=== PATIENT | male | born 1930 | race Caucasian/White ===

== ENCOUNTER → 2017-10-24 | Outpatient (CLI) | payer MEDICARE, OTHER ==
[2017-10-24 13:01] LABS: INR 2.41; PROTHROMBIN TIME 26.7 SECONDS (12.1-14.4)
== END ==
LOC: M WUC 09:09
DX: Z51.81 Encounter for therapeutic drug level monitoring (principal); Z79.01 Long term (current) use of anticoagulants; I48.3 Typical atrial flutter
CPT/HCPCS: 85610

== ENCOUNTER → 2017-11-29 | Outpatient (CLI) | payer MEDICARE, OTHER ==
[2017-11-29 12:28] LABS: INR 2.21; PROTHROMBIN TIME 24.9 SECONDS (12.1-14.4)
== END ==
LOC: M WUC 09:51
DX: I48.3 Typical atrial flutter (principal)
CPT/HCPCS: 85610

== ENCOUNTER → 2017-12-11 | Outpatient (CLI) | payer MEDICARE, OTHER ==
[2017-12-11 13:56] LABS: HEMATOCRIT 47.8 % (42.0-52.0); HEMOGLOBIN 16.2 g/dl (13.5-17.5); MEAN CORPUSCULAR HEMOGLOBIN 33.9 pg (27.0-33.0); MEAN CORPUSCULAR HGB CONC 33.9 g/dl (32.0-36.5); PLATELET COUNT, AUTOMATED 235 10^3/uL (150-450); RED BLOOD COUNT 4.78 10^6/uL (4.30-6.10); RED CELL DISTRIBUTION WIDTH 13.7 % (11.5-14.5); WHITE BLOOD COUNT 10.3 10^3/uL (4.0-10.0)
[2017-12-11 14:38] LABS: ANION GAP 10 MEQ/L (8-16); BLOOD UREA NITROGEN 20 MG/DL (7-18); CALCIUM LEVEL 9.2 MG/DL (8.8-10.2); CARBON DIOXIDE LEVEL 25 MEQ/L (21-32); CHLORIDE LEVEL 107 MEQ/L (98-107); CREATININE FOR GFR 0.98 MG/DL (0.70-1.30); GLOMERULAR FILTRATION RATE > 60.0 (>35); GLUCOSE, FASTING 100 MG/DL (70-100); MAGNESIUM LEVEL 2.3 MG/DL (1.8-2.4); POTASSIUM SERUM 4.5 MEQ/L (3.5-5.1); SODIUM LEVEL 142 MEQ/L (136-145)
== END ==
LOC: M WUC 10:13
DX: I50.32 Chronic diastolic (congestive) heart failure (principal); I48.2 Chronic atrial fibrillation
CPT/HCPCS: 83735

== ENCOUNTER → 2017-12-27 | Outpatient (CLI) | payer MEDICARE, OTHER ==
[2017-12-27 14:21] LABS: INR 2.05; PROTHROMBIN TIME 23.5 SECONDS (12.1-14.4)
== END ==
LOC: M WUC 10:07
DX: I48.3 Typical atrial flutter (principal)
CPT/HCPCS: 85610

== ENCOUNTER → 2018-01-25 | Outpatient (CLI) | payer MEDICARE, OTHER ==
[2018-01-25 11:00] LABS: INR 2.33
== END ==
LOC: M WUC 09:40
DX: I48.3 Typical atrial flutter (principal)
CPT/HCPCS: 85610

== ENCOUNTER → 2018-02-26 | Outpatient (CLI) | payer MEDICARE, OTHER ==
[2018-02-26 10:24] LABS: INR 2.07; PROTHROMBIN TIME 23.7 SECONDS (12.1-14.4)
== END ==
LOC: M WUC 08:38
DX: I48.3 Typical atrial flutter (principal); Z79.01 Long term (current) use of anticoagulants
CPT/HCPCS: 85610

== ENCOUNTER → 2018-03-28 | Outpatient (CLI) | payer MEDICARE, OTHER ==
[~2018-03-28] MED LIST: /WARF25TA; /WARF5TA; ACET65TA; ATEN50TA2; LASI40TA; LISI40TA; OMEGA 3; OYST500T76; THERGRAN; VITA250T
[2018-03-28 12:42] LABS: INR 2.24; PROTHROMBIN TIME 25.2 SECONDS (12.1-14.4)
== END ==
LOC: M WUC 08:49
PROVIDERS: ATTEND Physician Assistant
DX: I48.3 Typical atrial flutter (principal)

== ENCOUNTER → 2018-04-25 | Outpatient (CLI) | payer MEDICARE, OTHER ==
[2018-04-25 12:28] LABS: INR 2.18; PROTHROMBIN TIME 24.7 SECONDS (12.1-14.4)
== END ==
LOC: M WUC 09:36
PROVIDERS: ATTEND Physician Assistant
DX: I48.3 Typical atrial flutter (principal)

== ENCOUNTER → 2018-05-23 | Outpatient (CLI) | payer MEDICARE, OTHER ==
[2018-05-23 13:31] LABS: INR 1.96; PROTHROMBIN TIME 22.7 SECONDS (12.1-14.4)
== END ==
LOC: M WUC 08:32
PROVIDERS: ATTEND Physician Assistant
DX: I48.3 Typical atrial flutter (principal)

== ENCOUNTER → 2018-06-20 | Outpatient (CLI) | payer MEDICARE, OTHER ==
[2018-06-20 09:16] LABS: HEMATOCRIT 49.8 % (42.0-52.0); HEMOGLOBIN 16.9 g/dl (13.5-17.5); MEAN CORPUSCULAR HEMOGLOBIN 33.7 pg (27.0-33.0); MEAN CORPUSCULAR HGB CONC 33.9 g/dl (32.0-36.5); MEAN CORPUSCULAR VOLUME 99.4 fl (80.0-96.0); PLATELET COUNT, AUTOMATED 234 10^3/uL (150-450); RED BLOOD COUNT 5.01 10^6/uL (4.30-6.10); WHITE BLOOD COUNT 8.6 10^3/uL (4.0-10.0)
[2018-06-20 09:29] LABS: INR 2.61; PROTHROMBIN TIME 28.4 SECONDS (12.1-14.4)
[2018-06-20 09:37] LABS: BLOOD UREA NITROGEN 21 MG/DL (7-18); CARBON DIOXIDE LEVEL 28 MEQ/L (21-32); CHLORIDE LEVEL 106 MEQ/L (98-107); CREATININE FOR GFR 1.01 MG/DL (0.70-1.30); GLOMERULAR FILTRATION RATE > 60.0 (>35); GLUCOSE, FASTING 101 MG/DL (70-100); MAGNESIUM LEVEL 2.2 MG/DL (1.8-2.4); POTASSIUM SERUM 5.2 MEQ/L (3.5-5.1); SODIUM LEVEL 141 MEQ/L (136-145)
== END ==
LOC: M WUC 08:18
PROVIDERS: ATTEND Physician Assistant
DX: I48.2 Chronic atrial fibrillation (principal); I50.32 Chronic diastolic (congestive) heart failure

== ENCOUNTER → 2018-07-18 | Outpatient (CLI) | payer MEDICARE, OTHER ==
[~2018-07-18] MED LIST changes: -/WARF25TA; -/WARF5TA; +COUM1TAB17; +COUM1TAB18
[2018-07-18 10:13] LABS: INR 1.44; PROTHROMBIN TIME 17.8 SECONDS (12.1-14.4)
== END ==
LOC: M WUC 08:32
PROVIDERS: ATTEND Physician Assistant
DX: I48.2 Chronic atrial fibrillation (principal)

== ENCOUNTER → 2018-08-02 | Outpatient (CLI) | payer MEDICARE, OTHER ==
[2018-08-02 12:56] LABS: INR 3.67; PROTHROMBIN TIME 37.4 SECONDS (12.1-14.4)
== END ==
LOC: M WUC 08:46
PROVIDERS: ATTEND Physician Assistant
DX: I48.2 Chronic atrial fibrillation (principal)

== ENCOUNTER → 2018-08-16 | Outpatient (CLI) | payer MEDICARE, OTHER | LOC: M WUC 08:51 | PROVIDERS: ATTEND Physician Assistant | DX: I48.2 Chronic atrial fibrillation (principal) ==

== ENCOUNTER → 2018-09-13 | Outpatient (CLI) | payer MEDICARE, OTHER ==
[2018-09-13 09:40] LABS: INR 3.39; PROTHROMBIN TIME 34.3 SECONDS (11.8-14.0)
== END ==
LOC: M WUC 08:15
PROVIDERS: ATTEND Physician Assistant
DX: I48.2 Chronic atrial fibrillation (principal)

== ENCOUNTER → 2018-09-26 | Outpatient (CLI) | payer MEDICARE, OTHER ==
[2018-09-26 14:08] LABS: INR 2.29
== END ==
LOC: M WUC 08:28
PROVIDERS: ATTEND Physician Assistant
DX: I48.2 Chronic atrial fibrillation (principal)

== ENCOUNTER → 2018-10-29 | Outpatient (CLI) | payer MEDICARE, OTHER ==
[2018-10-29 13:37] LABS: INR 2.3; PROTHROMBIN TIME 25.1 SECONDS (11.8-14.0)
== END ==
LOC: M WUC 08:47
PROVIDERS: ATTEND Physician Assistant
DX: I48.2 Chronic atrial fibrillation (principal)

== ENCOUNTER → 2018-11-27 | Outpatient (CLI) | payer MEDICARE, OTHER ==
[2018-11-27 14:08] LABS: INR 2.49; PROTHROMBIN TIME 26.8 SECONDS (11.8-14.0)
== END ==
LOC: M WUC 08:34
PROVIDERS: ATTEND Physician Assistant
DX: I48.2 Chronic atrial fibrillation (principal)

== ENCOUNTER → 2018-12-28 | Outpatient (CLI) | payer MEDICARE, OTHER ==
[2018-12-28 13:12] LABS: APPEARANCE, URINE HAZY (CLEAR); BACTERIA, URINE AUTO NEGATIVE (NEGATIVE); BILIRUBIN, URINE AUTO NEGATIVE (NEGATIVE); BLOOD, URINE BLOOD 3+ (NEGATIVE); COLOR, URINE YELLOW (YELLOW); GLUCOSE, URINE (UA) AUTO NEGATIVE (NEGATIVE); KETONE, URINE AUTO NEGATIVE (NEGATIVE); LEUKOCYTE ESTERASE, URINE AUTO NEGATIVE (NEGATIVE); MUCUS, URINE SMALL (NEGATIVE); NITRITE, URINE AUTO NEGATIVE (NEGATIVE); PROTEIN, URINE AUTO 1+ mg/dL (NEGATIVE); RBC, URINE AUTO TNTC /HPF (0-3); SPECIFIC GRAVITY URINE AUTO 1.021 (1.002-1.035); SQUAMOUS EPITHELIAL CELL UR AU 0 /HPF (0-6); WBC, URINE AUTO 8 /HPF (0-3)
[2018-12-28 13:19] LABS: HEMATOCRIT 48.2 % (42.0-52.0); HEMOGLOBIN 16.1 g/dl (13.5-17.5); MEAN CORPUSCULAR HGB CONC 33.4 g/dl (32.0-36.5); MEAN CORPUSCULAR VOLUME 101.7 fl (80.0-96.0); PLATELET COUNT, AUTOMATED 242 10^3/uL (150-450); RED BLOOD COUNT 4.74 10^6/uL (4.30-6.10)
[2018-12-28 13:42] LABS: BLOOD UREA NITROGEN 26 MG/DL (7-18); CALCIUM LEVEL 8.8 MG/DL (8.8-10.2); CARBON DIOXIDE LEVEL 30 MEQ/L (21-32); CHLORIDE LEVEL 107 MEQ/L (98-107); CREATININE FOR GFR 1.08 MG/DL (0.70-1.30); GLOMERULAR FILTRATION RATE > 60.0 (>35); GLUCOSE, FASTING 121 MG/DL (70-100); MAGNESIUM LEVEL 2.2 MG/DL (1.8-2.4); POTASSIUM SERUM 4.7 MEQ/L (3.5-5.1); SODIUM LEVEL 143 MEQ/L (136-145)
== END ==
LOC: M WUC 10:32
PROVIDERS: ATTEND Physician Assistant
DX: I48.21 Permanent atrial fibrillation (principal)

== ENCOUNTER → 2019-01-01 | Outpatient (REF) | payer MEDICARE, OTHER ==
[2019-01-01 18:13] LABS: APPEARANCE, URINE CLEAR (CLEAR); BACTERIA, URINE AUTO NEGATIVE (NEGATIVE); BILIRUBIN, URINE AUTO NEGATIVE (NEGATIVE); BLOOD, URINE BLOOD 2+ (NEGATIVE); CALCIUM OXALATE CRYSTALS SMALL; COLOR, URINE YELLOW (YELLOW); GLUCOSE, URINE (UA) AUTO NEGATIVE (NEGATIVE); KETONE, URINE AUTO NEGATIVE (NEGATIVE); LEUKOCYTE ESTERASE, URINE AUTO NEGATIVE (NEGATIVE); MUCUS, URINE SMALL (NEGATIVE); NITRITE, URINE AUTO NEGATIVE (NEGATIVE); PROTEIN, URINE AUTO NEGATIVE (NEGATIVE); RBC, URINE AUTO 7 /HPF (0-3); SPECIFIC GRAVITY URINE AUTO 1.018 (1.002-1.035); SQUAMOUS EPITHELIAL CELL UR AU 0 /HPF (0-6); UROBILINOGEN, URINE AUTO 0.2 mg/dL (0.0-2.0); WBC, URINE AUTO 3 /HPF (0-3)
== END ==
LOC: M SMT 17:42
PROVIDERS: ATTEND Nurse Practitioner Family
DX: R31.9 Hematuria, unspecified (principal)
CPT/HCPCS: 81001; 87086; 88108; G0463

== ENCOUNTER → 2019-01-09 | Outpatient (CLI) | payer MEDICARE, OTHER ==
[~2019-01-09] MED LIST changes: +ISOVUE-370 76% 100ML VIAL (Q9967) As Ordered ONE
--- NOTE | 2019-01-09 16:34 | REP ---
REASON: Hematuria. PRIORS: None. CONTRAST: 100 mL Isovue-370. Fibrotic changes are suspected in the lung bases. There are no pleural or pericardial effusions. There is four chamber cardial enlargement. Precontrast enhanced portion of the examination shows no nephroureterolithiasis, hydronephrosis or hydroureter. There are no choleliths. Granulomatous calcifications are seen in the spleen. Contrast enhanced portion of the examination shows the liver, gallbladder, spleen, pancreas, adrenal glands and kidneys to be within normal limits for the patient's age. The abdominal aorta and paraortic regions are within normal limits. The bowel loops and their mesenteries are within normal limits. There is no free fluid or free air in the abdomen. There is no evidence of an intraabdominal mass or adenopathy. There is a tiny umbilical hernia through which only mesentery protrudes. CT PELVIS: There is a hutch diverticulum of the urinary bladder on the right. There is prostatomegaly with mild corpora amylacea. There is sigmoid colon diverticulosis. There is no free fluid or free air. There is no pelvic adenopathy. Bone window technique throughout the exam shows the osseous structures to be within normal limits for the patient's age. Spinal, sacroiliac joint, and particularly right hip degenerative changes are present. 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 CT urogram shows incomplete opacification of the left ureter, likely technically related. There is no evidence of hydronephrosis or hydroureter. IMPRESSION:There is no acute intraabdominal or intrapelvic disease. Findings as described above. Electronically Signed by Evan Hilario DO 01/10/2019 10:44 A
== END ==
LOC: M RAD 14:05
PROVIDERS: ATTEND Nurse Practitioner Family
DX: K57.30 Diverticulosis of large intestine without perforation or abscess without bleeding (principal); N40.0 Benign prostatic hyperplasia without lower urinary tract symptoms; N32.3 Diverticulum of bladder; R31.9 Hematuria, unspecified; R93.89 Abnormal findings on diagnostic imaging of other specified body structures
CPT/HCPCS: 74178; Q9967

== ENCOUNTER 2019-04-12 12:32 | Inpatient (IN) | payer MEDICARE, OTHER ==
[~2019-04-12] VITALS: Ht 170.2 cm; Wt 80.9 kg
[~2019-04-12 12:32] MED LIST changes: +CARD180C4 PO; +DILT180C28 PO; +DOCU100C16 PO; +FLOM0.4C39 PO; -ISOVUE-370 76% 100ML VIAL (Q9967) As Ordered ONE; +PERCOCET PO; +XARE15TA PO; +XARE20TA PO
[2019-04-12] MEDS ORDERED: oxyCODONE 5MG TAB PO PRN (12:45)
[2019-04-12] MEDS ORDERED: CALCIUM CARBONATE 500 MG CHEW U/D PO PRN (12:45)
[2019-04-12] MEDS ORDERED: MOM 30ML SUSPENSION UDC PO PRN (12:45)
--- NOTE | 2019-04-12 13:13 | HPEPDOC ---
Line Assembler Note DATE OF ADMISSION: 04-12-19 DATE OF SERVICE: 04-12-19 TIME OF ADMISSION: Please refer to physician's admission order. SOURCE OF ADMISSION INFORMATION: [facility] records and patient CHIEF COMPLAINT: tibial plateau fracture HISTORY OF PRESENT ILLNESS: 88M pmh chronic diastolic CHF, Afib on AC with PM, dementia, HTN, HLD fell at home and presented to [facility] ED on 04-08-19 complaining of RLE pain and difficulty walking. Doppler of LE was negative for DVT, however femur Xray showed, Suspect medial tibial plateau fracture with depression. Joint effusion at the knee. CTA chest was ordered which showed, There is poor enhancement of a pulmonary arterial branch within the right upper lobe of the lung, suspicious for p ulmonary embolism for which he was started on a therapeutic dose of Xarelto in addition to 2 aortic aneurysms and a splenic mass which patient and family opted not to work up further. His diuretic were discontinued per cardiology recs due to pre-renal azotemia and he was seen by orthopedics for his tibial plateau fracture who placed him in a knee extension brace and was instructed to remain WBAT with follow-up in 4-6 weeks. He remained on supplemental oxygen, with persistent leukocytosis thought to be inflammatory and also developed hyponatremia. He was evaluated by therapy, noted to have deficits in mobility and ADLs and deemed medically appropriate for discharge to ARU on 04-12-19. Upon inital visit patient reports he thinks he is developing gout in his left ankle and would like a short course of prednisone. REVIEW OF SYSTEMS: The following is a completed review of systems and has been reviewed. Review of systems otherwise unremarkable. PAIN: Patient self reports right hip and thigh pain (chronic) EYES: No recent vision changes EARS, NOSE, & THROAT: No throat pain, or dysphagia, or rhinorrhea CARDIOVASCULAR: Denies chest pain or palpitations PULMONARY: Denies shortness of breath GASTROINTESTINAL: +constipation GENITOURINARY: denies dysuria MUSCULOSKELETAL: left ankle swelling NEUROLOGICAL:denies focal tremor or seizure activity HEMATOLOGICAL: denies easy bruising SKIN: + palmar peeling skin PSYCHIATRIC: Unremarkable All other review of systems found to be negative. PAST MEDICAL HISTORY: as per HPI PAST SURGICAL HISTORY: +PM ALLERGIES: Please see below. MEDICATIONS: Please see below. SOCIAL HISTORY: no etoh, smoking, or illicit drugs DIET: low sodium, fluid restrict PHYSICAL EXAMINATION: VITAL SIGNS: Please see below. GENERAL: Pleasant and cooperative. No acute distress. HEENT: PERRL. Extraocular movements intact. Clear conjunctiva, mild facial flushing CARDIOVASCULAR: Regular rate and rhythm. No murmurs, rubs, or gallops LUNGS: Clear to auscultation bilaterally. No wheezes. No rhonchi ABDOMEN: Soft, nontender, nondistended. Positive bowel sounds. Normal active bowel sounds NEUROLOGICAL: Alert and oriented times three. Cranial nerves II through XII grossly intact. Sensation grossly intact EXTREMITIES: 5\5 strength bilateral upper extremities. >3\5 strength right hip flexion, 5/5 ankle DF/EHL/PF (limited due to knee immobilizer). 5/5 strength in left lower extremity. Left ankle, mildly TTP, no erythema or warmth SKIN: bilat feet with macerated interdigital spaces, no ulcers, palmar hand connor face with peeling skin, sacral area with blanchable erythema LABORATORY DATA: Please see below. IMAGING:Imaging documentation personally reviewed by record FUNCTIONAL STATUS: Premorbid: Modified Independent for mobility with RW, requiring some assistance with ADLs On Admission: Contact guard-Min assist for ambulation x 6ft, functional transfers, dressing, toileting, toileting GOALS: Mod-I with Rw for ambulation, stairs, functional transfers, dressing, [place] pervision for bathing and toileting, medical optimization, caregiver training. ASSESSMENT:88-year-old M with past medical history of chronic diastolic dysfucntion with PM who presents status post fall with right tibial plateau fracture PLAN: 1. Rehab- PT/OT advance gait training and ADL management WBAT to RLE with brace to be worn at all times 2. Neuro: hx of dementia- monitor for delirium 3. CArdiac/: Hx of chronic CHF with Afib and PM- c/u diltazem and Xarelto, daily weights, fluid restrict to 1800cc, home torsemide on hold per cardiology recs for pre-renal azotemia (per and patient he did not take any medications at home) -medicine consulted to assist in management -aortic aneurysm to be followed by PMD 4. Resp: recent dx of PE, c/u 21 day course of Xarelto 15mg BID then transition to 20mg daily -c/u supplemental 02, encourage incentive spirometry, monitor for infection 5. GI: protonix BID, will order FOBT -tums prn 6. 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 DVT ppx: on full dose Xarelto 8. : hx of BPH c/u flomax 9. Leukocytosis: will monitor 10.Pain: Tylenol standing, patient reporting he is averse to pain pills and all medications in general 11. Ortho: Right tibial plateau fracture- ortho consulted, f/u 4-6 weeks, brace to be worn when out of bed 12. Rheum: possible left ankle gout, will start short course of prednisone and check uric acid 13 Skin: epsom salt soaks for bilat feet and corn starch to keep interdigital spaces dry 14. Dispo: TBD POST ADMISSION PHYSICIAN EVALUATION: Medical and functional status: Description of medical status, medical assessment: As above. Rehabilitation diagnosis and current and prior cold morbid medical conditions as above. Risk of complications and plans to mitigate them as above. Description of functional status current status is as above. Prior status as above. Status compared to preadmission: There are no clinically significant differences between the patient's current status and the information described on the preadmission screening document. Treatment plan anticipated: Treatment plan is as described above. Required disciplines including physical therapy, occupational therapy, others as noted above. Intensity of services: 3 hours a day, 6 days a week. Special considerations: There are no specific special or safety considerations that would likely preclude immediate implementation of an intensive rehabilitation program or subsequently influence the plan of care. ATTESTATION: Considering all the information above, it is my best judgment that this patient requires intensive rehabilitation therapy as described above and an inpatient hospital environment due to the complexity of nursing, medical, and rehabilitation needs required by the patient. Furthermore, this patient can reasonably be expected to participate in an benefit from an inpatient rehabilitation stay with an interdisciplinary team approach to the delivery of rehabilitation care under the direction and supervision of rehabilitation physician. PROGNOSIS: Good ESTIMATED LENGTH OF STAY: 14-18 days. PROJECTED DISCHARGE DESTINATION: Home with family support and any durable medical equipment required to increase functional safety and mobility TIME SPENT COUNSELING AND COORDINATING INITIAL CARE: Greater than 70 minutes. Vital Signs Vital Signs Date Time Temp Pulse Resp B/P (MAP) Pulse Ox O2 Delivery O2 Flow Rate FiO2 04/12/19 15:20 97.8 76 18 136/67 (90) 93 Room Air Home Medications Scheduled Diltiazem Hcl (Cardizem Cd) 180 Mg Cap.er.24h, 180 MG PO BID Docusate Sodium (Docusate Sodium) 100 Mg Capsule, 100 MG PO BID Rivaroxaban (Xarelto) 20 Mg Tablet, 20 MG PO QPM start taking on 05/01/2019 WITH EVENING MEAL Rivaroxaban (Xarelto) 15 Mg Tablet, 15 MG PO BID@08,18 Tamsulosin HCl (Flomax) 0.4 Mg Capsule, 0.4 MG PO DAILY, (Reported) Scheduled PRN Oxycodone/Acetaminophen (Oxycodone-Acetaminophen 5-325) 1 Each Tablet, 1 TAB PO Q4HP PRN for MILD/MODERATE PAIN (PS 1-7) Allergies Coded Allergies: atorvastatin (Verified Adverse Reaction, Intermediate, legs hurt, 04/08/19) A-FIB/CHADSVASC A-FIB History Current/History of A-Fib/PAF?: Yes Current PO Anticoag Therapy: Yes JANELLE DILLON MD Apr 12, 2019 13:13
[2019-04-12 15:20] VITALS: BP 136/67
[2019-04-12] MEDS: REMEDY PHYTOPLEX Z-GUARD PASTE 113GM TUBE (FROM STOREROOM PRODUCT) TOP SCH ×2 (16:00→21:00)
[2019-04-12] MEDS: ACETAMINOPHEN 500 MG TAB PO SCH ×2 (16:31→21:00)
[2019-04-12] MEDS: RIVAROXABAN 15 MG TAB (XARELTO) PO SCH (17:35)
[2019-04-12] MEDS: IPRATROPIUM 0.5MG/ALBUTEROL 2.5MG INH SOL UD 3ML (DUONEB)(J7620) NEB SCH (19:54)
[2019-04-12 20:00] VITALS: BP 138/92
[2019-04-12] MEDS: PANTOPRAZOLE 40MG TAB (PROTONIX) PO SCH (22:35)
[2019-04-12] MEDS: diltiaZEM **CD** 180 MG CAP PO SCH (22:35)
[2019-04-12] MEDS: DOCUSATE SODIUM 100 MG CAP PO SCH (22:35)
[2019-04-12] MEDS: SENNA 8.6 MG TAB (SENOKOT) PO SCH (22:35)
[2019-04-12] MEDS: MAGNESIUM SULFATE GRANULES(EPSOM SALT) 1LB TOP SCH (22:49)
[2019-04-13 06:00] VITALS: BP 115/74
[2019-04-13 06:44] LABS: BASO # 0.1 10^3/uL (0.0-0.2); BASO % 0.8 % (0.0-1.0); EOS # 0.3 10^3/uL (0.0-0.5); EOS % 2.3 % (0.0-3.0); HEMATOCRIT 40.6 % (42.0-52.0); HEMOGLOBIN 13.4 g/dl (13.5-17.5); LYMPH # 1.2 10^3/uL (1.5-5.0); LYMPH % 9.5 % (24.0-44.0); MEAN CORPUSCULAR HEMOGLOBIN 33.2 pg (27.0-33.0); MEAN CORPUSCULAR VOLUME 100.5 fl (80.0-96.0); NEUTROPHILS # 9.2 10^3/uL (1.5-8.5); NEUTROPHILS % 70.6 % (36.0-66.0); PLATELET COUNT, AUTOMATED 301 10^3/uL (150-450); RED BLOOD COUNT 4.04 10^6/uL (4.30-6.10)
[2019-04-13 07:06] LABS: MONO # 2.1 10^3/uL (0.0-0.8)
[2019-04-13 07:23] LABS: ALBUMIN 2.4 GM/DL (3.2-5.2); ALT/SGPT 14 U/L (12-78); BILIRUBIN,TOTAL 1.3 MG/DL (0.2-1.0); BLOOD UREA NITROGEN 22 MG/DL (7-18); CALCIUM LEVEL 8.6 MG/DL (8.8-10.2); CARBON DIOXIDE LEVEL 28 MEQ/L (21-32); CHLORIDE LEVEL 97 MEQ/L (98-107); CREATININE FOR GFR 0.78 MG/DL (0.70-1.30); GLOMERULAR FILTRATION RATE > 60.0 (>35); GLUCOSE, FASTING 100 MG/DL (70-100); POTASSIUM SERUM 3.6 MEQ/L (3.5-5.1); SODIUM LEVEL 133 MEQ/L (136-145); TOTAL PROTEIN 5.8 GM/DL (6.4-8.2); URIC ACID 4.9 MG/DL (3.5-7.2)
[2019-04-13] MEDS: IPRATROPIUM 0.5MG/ALBUTEROL 2.5MG INH SOL UD 3ML (DUONEB)(J7620) NEB SCH ×2 (07:51→20:00)
[2019-04-13] MEDS: REMEDY PHYTOPLEX Z-GUARD PASTE 113GM TUBE (FROM STOREROOM PRODUCT) TOP SCH ×3 (09:00→20:22)
[2019-04-13] MEDS: PANTOPRAZOLE 40MG TAB (PROTONIX) PO SCH ×2 (10:02→20:21)
[2019-04-13] MEDS: DOCUSATE SODIUM 100 MG CAP PO SCH ×2 (10:02→20:21)
[2019-04-13] MEDS: TAMSULOSIN 0.4 MG CAP PO SCH (10:02)
[2019-04-13] MEDS: RIVAROXABAN 15 MG TAB (XARELTO) PO SCH ×2 (10:02→17:17)
[2019-04-13] MEDS: diltiaZEM **CD** 180 MG CAP PO SCH ×2 (10:02→20:21)
[2019-04-13] MEDS: ACETAMINOPHEN 500 MG TAB PO SCH ×3 (10:04→20:21)
[2019-04-13 14:00] VITALS: BP 108/64
[2019-04-13] MEDS: predniSONE 10 MG TAB PO SCH (16:26)
[2019-04-13 20:00] VITALS: BP 117/75
[2019-04-13] MEDS: SENNA 8.6 MG TAB (SENOKOT) PO SCH (20:21)
[2019-04-13] MEDS: MAGNESIUM SULFATE GRANULES(EPSOM SALT) 1LB TOP SCH (20:22)
[2019-04-14 06:00] VITALS: BP 115/60
[2019-04-14] MEDS: IPRATROPIUM 0.5MG/ALBUTEROL 2.5MG INH SOL UD 3ML (DUONEB)(J7620) NEB SCH ×2 (07:57→17:27)
[2019-04-14] MEDS: TAMSULOSIN 0.4 MG CAP PO SCH (08:25)
[2019-04-14] MEDS: PANTOPRAZOLE 40MG TAB (PROTONIX) PO SCH ×2 (08:25→20:10)
[2019-04-14] MEDS: DOCUSATE SODIUM 100 MG CAP PO SCH ×2 (08:25→20:10)
[2019-04-14] MEDS: predniSONE 10 MG TAB PO SCH (08:25)
[2019-04-14] MEDS: diltiaZEM **CD** 180 MG CAP PO SCH ×2 (08:25→20:11)
[2019-04-14] MEDS: RIVAROXABAN 15 MG TAB (XARELTO) PO SCH ×2 (08:25→17:24)
[2019-04-14] MEDS: REMEDY PHYTOPLEX Z-GUARD PASTE 113GM TUBE (FROM STOREROOM PRODUCT) TOP SCH ×3 (08:26→20:12)
[2019-04-14] MEDS: ACETAMINOPHEN 500 MG TAB PO SCH ×3 (09:30→20:11)
[2019-04-14 14:00] VITALS: BP 119/75
[2019-04-14 20:00] VITALS: BP 127/73
[2019-04-14] MEDS: SENNA 8.6 MG TAB (SENOKOT) PO SCH (20:10)
[2019-04-14] MEDS: MAGNESIUM SULFATE GRANULES(EPSOM SALT) 1LB TOP SCH (20:14)
[2019-04-15 05:43] VITALS: BP 128/89
[2019-04-15] MEDS: IPRATROPIUM 0.5MG/ALBUTEROL 2.5MG INH SOL UD 3ML (DUONEB)(J7620) NEB SCH ×2 (07:25→19:16)
[2019-04-15] MEDS: DOCUSATE SODIUM 100 MG CAP PO SCH ×2 (08:27→21:17)
[2019-04-15] MEDS: RIVAROXABAN 15 MG TAB (XARELTO) PO SCH ×2 (08:27→16:50)
[2019-04-15] MEDS: diltiaZEM **CD** 180 MG CAP PO SCH ×2 (08:28→21:18)
[2019-04-15] MEDS: PANTOPRAZOLE 40MG TAB (PROTONIX) PO SCH ×2 (08:28→21:17)
[2019-04-15] MEDS: REMEDY PHYTOPLEX Z-GUARD PASTE 113GM TUBE (FROM STOREROOM PRODUCT) TOP SCH ×3 (08:28→21:18)
[2019-04-15] MEDS: predniSONE 5 MG TAB PO SCH (08:28)
[2019-04-15] MEDS: predniSONE 10 MG TAB PO SCH (08:28)
[2019-04-15] MEDS: ACETAMINOPHEN 500 MG TAB PO SCH ×3 (08:28→21:17)
[2019-04-15] MEDS: TAMSULOSIN 0.4 MG CAP PO SCH (08:28)
[2019-04-15 09:58] LABS: BASO # 0.2 10^3/uL (0.0-0.2); EOS # 0.4 10^3/uL (0.0-0.5); EOS % 2.9 % (0.0-3.0); HEMATOCRIT 44.6 % (42.0-52.0); LYMPH # 1.8 10^3/uL (1.5-5.0); MEAN CORPUSCULAR HEMOGLOBIN 33.9 pg (27.0-33.0); MEAN CORPUSCULAR HGB CONC 33.6 g/dl (32.0-36.5); MEAN CORPUSCULAR VOLUME 100.7 fl (80.0-96.0); NEUTROPHILS # 10.4 10^3/uL (1.5-8.5); NEUTROPHILS % 68.8 % (36.0-66.0); PLATELET COUNT, AUTOMATED 450 10^3/uL (150-450); RED BLOOD COUNT 4.43 10^6/uL (4.30-6.10); WHITE BLOOD COUNT 15.1 10^3/uL (4.0-10.0)
[2019-04-15 10:21] LABS: BLOOD UREA NITROGEN 18 MG/DL (7-18); CALCIUM LEVEL 8.7 MG/DL (8.8-10.2); CARBON DIOXIDE LEVEL 30 MEQ/L (21-32); CHLORIDE LEVEL 99 MEQ/L (98-107); CREATININE FOR GFR 0.91 MG/DL (0.70-1.30); GLOMERULAR FILTRATION RATE > 60.0 (>35); GLUCOSE, FASTING 127 MG/DL (70-100); MONO # 2.1 10^3/uL (0.0-0.8); POTASSIUM SERUM 3.6 MEQ/L (3.5-5.1); SODIUM LEVEL 135 MEQ/L (136-145)
--- NOTE | 2019-04-15 11:08 | IPNPDOC ---
PM&R Progress Note DATE OF SERVICE: Apr 15, 2019 [employer] Representative [employer] Progress Note Subjective: Patient seen in his room stating he is feels ok today, but is seeing dust on the ceiling. REVIEW OF SYSTEMS: The following is a completed review of systems and has been reviewed. Review of systems otherwise unremarkable. PAIN: Patient self reports right hip and thigh pain (chronic) EYES: No recent vision changes EARS, NOSE, & THROAT: No throat pain, or dysphagia, or rhinorrhea CARDIOVASCULAR: Denies chest pain or palpitations PULMONARY: Denies shortness of breath GASTROINTESTINAL: +constipation (improving) GENITOURINARY: denies dysuria MUSCULOSKELETAL: left ankle swelling NEUROLOGICAL:denies focal tremor or seizure activity HEMATOLOGICAL: denies easy bruising SKIN: + palmar peeling skin PSYCHIATRIC: Unremarkable All other review of systems found to be negative. PHYSICAL EXAMINATION: VITAL SIGNS: Please see below. GENERAL: Pleasant and cooperative. No acute distress. HEENT: PERRL. Extraocular movements intact. Clear conjunctiva, mild facial flushing CARDIOVASCULAR: Regular rate and rhythm. No murmurs, rubs, or gallops LUNGS: Clear to auscultation bilaterally. No wheezes. No rhonchi ABDOMEN: Soft, nontender, nondistended. Positive bowel sounds. Normal active bowel sounds NEUROLOGICAL: Alert and oriented times three. Cranial nerves II through XII grossly intact. Sensation grossly intact EXTREMITIES: 5\5 strength bilateral upper extremities. >3\5 strength right hip flexion, 5/5 ankle DF/EHL/PF (limited due to knee immobilizer). 5/5 strength in left lower extremity. Left ankle, non-TTP, no erythema or warmth SKIN: bilat feet with macerated interdigital spaces (improving), no ulcers, palmar hand surface with peeling skin, sacral area with blanchable erythema ASSESSMENT:88-year-old M with past medical history of chronic diastolic dysfucntion with PM who presents status post fall with right tibial plateau fracture PLAN: 1. Rehab- PT/OT advance gait training and ADL management WBAT to RLE with brace to be worn at all times 2. Neuro: hx of dementia- monitor for delirium-patient with visual hallucination today, may be sundowning, is not interfering with therapy at this time 3. Cardiac/: Hx of chronic CHF with Afib and PM- c/u diltazem and Xarelto, daily weights, fluid restrict to 1800cc, home torsemide on hold per cardiology recs for pre-renal azotemia (per and patient he did not take any medications at home) -medicine consulted to assist in management -aortic aneurysm to be followed by PMD 4. Resp: recent dx of PE, c/u 21 day course of Xarelto 15mg BID then transition to 20mg daily -c/u supplemental 02, encourage incentive spirometry, monitor for infection 5. GI: protonix BID,FOBT negative -tums prn 6. 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 DVT ppx: on full dose Xarelto 8. : hx of BPH c/u flomax 9. Leukocytosis: possibly reactionary in setting of recent tibial plateau fracture vs due to steroids 10.Pain: Tylenol standing, patient reporting he is averse to pain pills and all medications in general 11. Ortho: Right tibial plateau fracture- ortho consulted, f/u 4-6 weeks, brace to be worn when out of bed 12. Rheum: possible left ankle gout, c/u short course of prednisone-uric acid WNL 13 Skin: epsom salt soaks for bilat feet and corn starch to keep interdigital spaces dry 14. dispo: tbd Allergies Coded Allergies: atorvastatin (Verified Adverse Reaction, Intermediate, legs hurt, 04/08/19) Vital Signs Vital Signs Date Time Temp Pulse Resp B/P (MAP) Pulse Ox O2 Delivery O2 Flow Rate FiO2 04/15/19 08:28 52 128/89 04/15/19 05:43 97.4 18 96 Room Air Laboratory Data CBC/BMP Laboratory Tests 04/15/19 09:31 Labs 24H Laboratory Tests 2 04/15/19 09:31: Immature Granulocyte % (Auto) 1.3, Neutrophils (%) (Auto) 68.8H, Lymphocytes (%) (Auto) 12.0L, Monocytes (%) (Auto) 14.0H, Eosinophils (%) (Auto) 2.9, Basophils (%) (Auto) 1.0, Neutrophils # (Auto) 10.4H, Lymphocytes # (Auto) 1.8, Monocytes # (Auto) 2.1H, Eosinophils # (Auto) 0.4, Basophils # (Auto) 0.2, Nucleated Red Blood Cells % (auto) 0.0, Anion Gap 6L, Glomerular Filtration Rate > 60.0, Calcium Level 8.7L Microbiology Microbiology 04/15/19 Stool Occult Blood (ISRRA[place]) - Final, Complete Current Medications Current Medications Current Medications Medications (Trade) Dose Ordered Sig/Devonte Route PRN Reason Start Time Stop Time Status Last Admin Dose Admin Acetaminophen (Tylenol Tab) 1,000 mg TID PO 04/12/19 16:00 04/15/19 08:28 Albuterol/ Ipratropium (Duoneb (Ipr 0.5mg/Alb 2.5mg)) 3 ml RBID NEB 04/12/19 20:00 04/14/19 17:27 Calcium Carbonate (Tums) 1,000 mg Q4HP PRN PO HEARTBURN 04/12/19 12:45 Diltiazem HCl (Cardizem Cd) 180 mg BID PO 04/12/19 21:00 04/15/19 08:28 Docusate Sodium (Colace) 100 mg BID PO 04/12/19 21:00 04/15/19 08:27 Magnesium Hydroxide (Milk Of Magnesia) 30 ml DAILYPRN PRN PO CONSTIPATION 04/12/19 12:45 Magnesium Sulfate (Epsom Salt) please soak bilate... QHS TOP 04/12/19 21:00 04/14/19 20:14 Oxycodone HCl (Roxicodone, Oxyir) 5 mg Q4HP PRN PO PAIN 04/12/19 12:45 Pantoprazole Sodium (Protonix) 40 mg BID PO 04/12/19 21:00 04/15/19 08:28 Prednisone (Deltasone) 5 mg DAILY PO 04/15/19 09:00 04/16/19 09:01 04/15/19 08:28 Prednisone (Deltasone) 10 mg DAILY PO 04/13/19 09:00 04/21/19 23:00 04/15/19 08:28 Rivaroxaban (Xarelto) 15 mg BID@0800,1800 PO 04/12/19 18:00 05/01/19 23:59 04/15/19 08:27 Rivaroxaban (Xarelto) 20 mg DAILY PO 05/02/19 09:00 Senna (Senokot) 1 tab QHS PO 04/12/19 21:00 1/19/20 20:10 Tamsulosin HCl (Flomax) 0.4 mg DAILY PO 04/13/19 09:00 04/15/19 08:28 JANELLE DILLON MD Apr 15, 2019 11:08
[2019-04-15 14:00] VITALS: BP 132/75
[2019-04-15 20:00] VITALS: BP 123/73
[2019-04-15] MEDS: MAGNESIUM SULFATE GRANULES(EPSOM SALT) 1LB TOP SCH (21:00)
[2019-04-15] MEDS: SENNA 8.6 MG TAB (SENOKOT) PO SCH (21:17)
[2019-04-16 06:00] VITALS: BP 127/85
[2019-04-16] MEDS: IPRATROPIUM 0.5MG/ALBUTEROL 2.5MG INH SOL UD 3ML (DUONEB)(J7620) NEB SCH ×2 (07:19→20:00)
[2019-04-16] MEDS: DOCUSATE SODIUM 100 MG CAP PO SCH ×2 (09:00→21:13)
[2019-04-16] MEDS: TAMSULOSIN 0.4 MG CAP PO SCH (09:23)
[2019-04-16] MEDS: predniSONE 5 MG TAB PO SCH (09:23)
[2019-04-16] MEDS: predniSONE 10 MG TAB PO SCH (09:23)
[2019-04-16] MEDS: RIVAROXABAN 15 MG TAB (XARELTO) PO SCH ×2 (09:23→16:53)
[2019-04-16] MEDS: PANTOPRAZOLE 40MG TAB (PROTONIX) PO SCH ×2 (09:23→21:13)
[2019-04-16] MEDS: ACETAMINOPHEN 500 MG TAB PO SCH ×3 (09:23→21:13)
[2019-04-16] MEDS: REMEDY PHYTOPLEX Z-GUARD PASTE 113GM TUBE (FROM STOREROOM PRODUCT) TOP SCH ×3 (09:24→21:22)
[2019-04-16] MEDS: diltiaZEM **CD** 180 MG CAP PO SCH ×2 (09:28→21:13)
--- NOTE | 2019-04-16 12:40 | IPNPDOC ---
PM&R Progress Note DATE OF SERVICE: Apr 16, 2019 Winding Inspector Progress Note Subjective: Patient seen in therapy stating he feels good overall and would like to try a muscle rub for his right thigh and hip. REVIEW OF SYSTEMS: The following is a completed review of systems and has been reviewed. Review of systems otherwise unremarkable. PAIN: Patient self reports right hip and thigh pain (chronic) EYES: No recent vision changes EARS, NOSE, & THROAT: No throat pain, or dysphagia, or rhinorrhea CARDIOVASCULAR: Denies chest pain or palpitations PULMONARY: Denies shortness of breath GASTROINTESTINAL: +constipation (improving) GENITOURINARY: denies dysuria MUSCULOSKELETAL: left ankle swelling NEUROLOGICAL:denies focal tremor or seizure activity HEMATOLOGICAL: denies easy bruising SKIN: + palmar peeling skin PSYCHIATRIC: Unremarkable All other review of systems found to be negative. PHYSICAL EXAMINATION: VITAL SIGNS: Please see below. GENERAL: Pleasant and cooperative. No acute distress. HEENT: PERRL. Extraocular movements intact. Clear conjunctiva, mild facial flushing CARDIOVASCULAR: Regular rate and rhythm. No murmurs, rubs, or gallops LUNGS: Clear to auscultation bilaterally. No wheezes. No rhonchi ABDOMEN: Soft, nontender, nondistended. Positive bowel sounds. Normal active bowel sounds NEUROLOGICAL: Alert and oriented times three. Cranial nerves II through XII grossly intact. Sensation grossly intact EXTREMITIES: 5\5 strength bilateral upper extremities. >3\5 strength right hip flexion, 5/5 ankle DF/EHL/PF (limited due to knee immobilizer). 5/5 strength in left lower extremity. Left ankle, non-TTP, no erythema or warmth SKIN: bilat feet with macerated interdigital spaces (improving), no ulcers, palmar hand surface with peeling skin, sacral area with blanchable erythema ASSESSMENT:88-year-old M with past medical history of chronic diastolic dysfucntion with PM who presents status post fall with right tibial plateau fracture PLAN: 1. Rehab- PT/OT advance gait training and ADL management WBAT to RLE with brace to be worn at all times 2. Neuro: hx of dementia- monitor for delirium-patient with visual hallucination yesterday, improved today 3. Cardiac/: Hx of chronic CHF with Afib and PM- c/u diltazem and Xarelto, daily weights, fluid restrict to 1800cc, home torsemide on hold per cardiology recs for pre-renal azotemia (per and patient he did not take any medications at home) -medicine consulted to assist in management -aortic aneurysm to be followed by PMD 4. Resp: recent dx of PE, c/u 21 day course of Xarelto 15mg BID then transition to 20mg daily -c/u supplemental 02, encourage incentive spirometry, monitor for infection 5. GI: protonix BID, FOBT negative -tums prn 6. 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 DVT ppx: on full dose Xarelto 8. : hx of BPH c/u flomax 9. Leukocytosis: possibly reactionary in setting of recent tibial plateau fracture vs due to steroids 10.Pain: Tylenol standing, patient reporting he is averse to pain pills and all medications in general -will add menthol salicylate to right hip/thigh area 11. Ortho: Right tibial plateau fracture- ortho consulted, f/u 4-6 weeks, brace to be worn when out of bed 12. Rheum: possible left ankle gout, c/u short course of prednisone-uric acid WNL 13 Skin: epsom salt soaks for bilat feet and corn starch to keep interdigital spaces dry 14. dispo: tbd Allergies Coded Allergies: atorvastatin (Verified Adverse Reaction, Intermediate, legs hurt, 04/08/19) Vital Signs Vital Signs Date Time Temp Pulse Resp B/P (MAP) Pulse Ox O2 Delivery O2 Flow Rate FiO2 04/16/19 09:28 87 127/85 04/16/19 06:00 97.1 18 94 Room Air Microbiology Microbiology 04/15/19 Stool Occult Blood ([place]) - Final, Complete Current Medications Current Medications Current Medications Medications (Trade) Dose Ordered Sig/Devonte Route PRN Reason Start Time Stop Time Status Last Admin Dose Admin Acetaminophen (Tylenol Tab) 1,000 mg TID PO 04/12/19 16:00 04/16/19 09:23 Albuterol/ Ipratropium (Duoneb (Ipr 0.5mg/Alb 2.5mg)) 3 ml RBID NEB 04/12/19 20:00 04/16/19 07:19 Calcium Carbonate (Tums) 1,000 mg Q4HP PRN PO HEARTBURN 04/12/19 12:45 Diltiazem HCl (Cardizem Cd) 180 mg BID PO 04/12/19 21:00 04/16/19 09:28 Docusate Sodium (Colace) 100 mg BID PO 04/12/19 21:00 04/15/19 21:17 Magnesium Hydroxide (Milk Of Magnesia) 30 ml DAILYPRN PRN PO CONSTIPATION 04/12/19 12:45 Magnesium Sulfate (Epsom Salt) please soak bilate... QHS TOP 04/12/19 21:00 04/14/19 20:14 Oxycodone HCl (Roxicodone, Oxyir) 5 mg Q4HP PRN PO PAIN 04/12/19 12:45 Pantoprazole Sodium (Protonix) 40 mg BID PO 04/12/19 21:00 04/16/19 09:23 Prednisone (Deltasone) 5 mg DAILY PO 04/15/19 09:00 04/16/19 09:01 DC 04/16/19 09:23 Prednisone (Deltasone) 10 mg DAILY PO 04/13/19 09:00 04/16/19 09:48 DC 04/16/19 09:23 Rivaroxaban (Xarelto) 15 mg BID@0800,1800 PO 04/12/19 18:00 05/01/19 23:59 04/16/19 09:23 Rivaroxaban (Xarelto) 20 mg DAILY PO 05/02/19 09:00 Senna (Senokot) 1 tab QHS PO 04/12/19 21:00 04/15/19 21:17 Tamsulosin HCl (Flomax) 0.4 mg DAILY PO 04/13/19 09:00 04/16/19 09:23 JANELLE DILLON MD Apr 16, 2019 12:40
[2019-04-16 14:00] VITALS: BP 118/73
[2019-04-16] MEDS: ANALGESIC BALM CRM 120 GM TOP SCH ×2 (16:00→21:14)
[2019-04-16 20:00] VITALS: BP_SYST 131; BP_SYST 134; BP_DIAS 66; BP_DIAS 77
[2019-04-16] MEDS: MAGNESIUM SULFATE GRANULES(EPSOM SALT) 1LB TOP SCH (21:00)
[2019-04-16] MEDS: SENNA 8.6 MG TAB (SENOKOT) PO SCH (21:12)
[2019-04-17 06:00] VITALS: BP 124/85
[2019-04-17 07:28] LABS: BASO # 0.1 10^3/uL (0.0-0.2); BASO % 0.9 % (0.0-1.0); EOS # 0.3 10^3/uL (0.0-0.5); EOS % 2.3 % (0.0-3.0); HEMATOCRIT 44.7 % (42.0-52.0); HEMOGLOBIN 14.2 g/dl (13.5-17.5); LYMPH # 2.4 10^3/uL (1.5-5.0); MEAN CORPUSCULAR HEMOGLOBIN 32.5 pg (27.0-33.0); MEAN CORPUSCULAR HGB CONC 31.8 g/dl (32.0-36.5); MEAN CORPUSCULAR VOLUME 102.3 fl (80.0-96.0); MONO # 1.6 10^3/uL (0.0-0.8); MONO % 11.7 % (0.0-5.0); NEUTROPHILS # 9.2 10^3/uL (1.5-8.5); NEUTROPHILS % 66.2 % (36.0-66.0); PLATELET COUNT, AUTOMATED 453 10^3/uL (150-450); RED BLOOD COUNT 4.37 10^6/uL (4.30-6.10); WHITE BLOOD COUNT 13.8 10^3/uL (4.0-10.0)
[2019-04-17 07:55] LABS: BLOOD UREA NITROGEN 20 MG/DL (7-18); CALCIUM LEVEL 8.6 MG/DL (8.8-10.2); CARBON DIOXIDE LEVEL 30 MEQ/L (21-32); CHLORIDE LEVEL 100 MEQ/L (98-107); CREATININE FOR GFR 0.82 MG/DL (0.70-1.30); GLOMERULAR FILTRATION RATE > 60.0 (>35); GLUCOSE, FASTING 80 MG/DL (70-100); POTASSIUM SERUM 3.8 MEQ/L (3.5-5.1); SODIUM LEVEL 137 MEQ/L (136-145)
[2019-04-17] MEDS: IPRATROPIUM 0.5MG/ALBUTEROL 2.5MG INH SOL UD 3ML (DUONEB)(J7620) NEB SCH ×2 (08:00→20:00)
[2019-04-17] MEDS: TAMSULOSIN 0.4 MG CAP PO SCH (08:44)
[2019-04-17] MEDS: PANTOPRAZOLE 40MG TAB (PROTONIX) PO SCH ×2 (08:44→21:21)
[2019-04-17] MEDS: DOCUSATE SODIUM 100 MG CAP PO SCH ×3 (08:44→21:00)
[2019-04-17] MEDS: RIVAROXABAN 15 MG TAB (XARELTO) PO SCH ×2 (08:44→17:52)
[2019-04-17] MEDS: ACETAMINOPHEN 500 MG TAB PO SCH ×3 (08:44→21:22)
[2019-04-17] MEDS: diltiaZEM **CD** 180 MG CAP PO SCH ×2 (08:44→21:25)
[2019-04-17] MEDS: ANALGESIC BALM CRM 120 GM TOP SCH ×3 (08:46→21:23)
[2019-04-17] MEDS: REMEDY PHYTOPLEX Z-GUARD PASTE 113GM TUBE (FROM STOREROOM PRODUCT) TOP SCH ×3 (08:47→21:23)
--- NOTE | 2019-04-17 11:55 | IPNPDOC ---
PM&R Progress Note DATE OF SERVICE: Apr 17, 2019 Civil Structural [employer] Progress Note Subjective: Patient seen in therapy stating he feels good but has some swelling in his right leg. REVIEW OF SYSTEMS: The following is a completed review of systems and has been reviewed. Review of systems otherwise unremarkable. PAIN: Patient self reports right hip and thigh pain (chronic) EYES: No recent vision changes EARS, NOSE, & THROAT: No throat pain, or dysphagia, or rhinorrhea CARDIOVASCULAR: Denies chest pain or palpitations PULMONARY: Denies shortness of breath GASTROINTESTINAL: +constipation (improving) GENITOURINARY: denies dysuria MUSCULOSKELETAL: left ankle swelling NEUROLOGICAL:denies focal tremor or seizure activity HEMATOLOGICAL: denies easy bruising SKIN: + palmar peeling skin PSYCHIATRIC: Unremarkable All other review of systems found to be negative. PHYSICAL EXAMINATION: VITAL SIGNS: Please see below. GENERAL: Pleasant and cooperative. No acute distress. HEENT: PERRL. Extraocular movements intact. Clear conjunctiva, mild facial fl ushing CARDIOVASCULAR: Regular rate and rhythm. No murmurs, rubs, or gallops LUNGS: Clear to auscultation bilaterally. No wheezes. No rhonchi ABDOMEN: Soft, nontender, nondistended. Positive bowel sounds. Normal active bowel sounds NEUROLOGICAL: Alert and oriented times three. Cranial nerves II through XII grossly intact. Sensation grossly intact EXTREMITIES: 5\5 strength bilateral upper extremities. >3\5 strength right hip flexion, 5/5 ankle DF/EHL/PF (limited due to knee immobilizer). 5/5 strength in left lower extremity. Left ankle, non-TTP, no erythema or warmth SKIN: bilat feet with macerated interdigital spaces (improving), no ulcers, palmar hand surface with peeling skin, sacral area with blanchable erythema ASSESSMENT:88-year-old M with past medical history of chronic diastolic dysfucntion with PM who presents status post fall with right tibial plateau fracture PLAN: 1. Rehab- PT/OT advance gait training and ADL management WBAT to RLE with brace to be worn at all times when OOB- ambulating well in therapy 2. Neuro: hx of dementia- monitor for delirium-patient with visual hallucination yesterday, improved today 3. Cardiac/: Hx of chronic CHF with Afib and PM- c/u diltazem and Xarelto, daily weights, fluid restrict to 1800cc, home torsemide on hold per cardiology recs for pre-renal azotemia (per and patient he did not take any medications at home) -medicine consulted to assist in management -aortic aneurysm to be followed by PMD 4. Resp: recent dx of PE, c/u 21 day course of Xarelto 15mg BID then transition to 20mg daily -c/u supplemental 02, encourage incentive spirometry, monitor for infection 5. GI: protonix BID, FOBT negative -tums prn 6. 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 DVT ppx: on full dose Xarelto 8. : hx of BPH c/u flomax 9. Leukocytosis: possibly reactionary in setting of recent tibial plateau fracture vs due to steroids 10.Pain: Tylenol standing, patient reporting he is averse to pain pills and all medications in general -c/u menthol salicylate to right hip/thigh area 11. Ortho: Right tibial plateau fracture- ortho consulted, f/u 4-6 weeks, brace to be worn when out of bed 12. Rheum: possible left ankle gout, c/u short course of prednisone-uric acid WNL 13 Skin: Epsom salt soaks for bilat feet and talc powder to keep interdigital spaces dry 14. RLE edema- acewrap and elevate-dopplers ordered today to r/o dvt 14. dispo: 04/24/19 to home, progressing towards goals Allergies Coded Allergies: atorvastatin (Verified Adverse Reaction, Intermediate, legs hurt, 04/08/19) Vital Signs Vital Signs Date Time Temp Pulse Resp B/P (MAP) Pulse Ox O2 Delivery O2 Flow Rate FiO2 04/17/19 08:44 66 128/80 04/17/19 06:00 96.6 18 96 Room Air Laboratory Data CBC/BMP Laboratory Tests 04/17/19 07:02 Labs 24H Laboratory Tests 2 04/17/19 07:02: Immature Granulocyte % (Auto) 1.9, Neutrophils (%) (Auto) 66.2H, Lymphocytes (%) (Auto) 17.0L, Monocytes (%) (Auto) 11.7H, Eosinophils (%) (Auto) 2.3, Basophils (%) (Auto) 0.9, Neutrophils # (Auto) 9.2H, Lymphocytes # (Auto) 2.4, Monocytes # (Auto) 1.6H, Eosinophils # (Auto) 0.3, Basophils # (Auto) 0.1, Nucleated Red Blood Cells % (auto) 0.0, Anion Gap 7L, Glomerular Filtration Rate > 60.0, Calcium Level 8.6L Microbiology Microbiology 04/15/19 Stool Occult Blood ([place]) - Final, Complete Current Medications Current Medications Current Medications Medications (Trade) Dose Ordered Sig/Devonte Route PRN Reason Start Time Stop Time Status Last Admin Dose Admin Acetaminophen (Tylenol Tab) 1,000 mg TID PO 04/12/19 16:00 04/17/19 08:44 Albuterol/ Ipratropium (Duoneb (Ipr 0.5mg/Alb 2.5mg)) 3 ml RBID NEB 04/12/19 20:00 04/16/19 07:19 Calcium Carbonate (Tums) 1,000 mg Q4HP PRN PO HEARTBURN 04/12/19 12:45 Diltiazem HCl (Cardizem Cd) 180 mg BID PO 04/12/19 21:00 04/17/19 08:44 Docusate Sodium (Colace) 100 mg BID PO 04/12/19 21:00 04/16/19 21:13 Magnesium Hydroxide (Milk Of Magnesia) 30 ml DAILYPRN PRN PO CONSTIPATION 04/12/19 12:45 Magnesium Sulfate (Epsom Salt) please soak bilate... QHS TOP 04/12/19 21:00 04/14/19 20:14 Menthol/Methyl Salicylate (Bengay Cream) right groin and anter... TID TOP 04/16/19 16:00 04/17/19 08:46 Oxycodone HCl (Roxicodone, Oxyir) 5 mg Q4HP PRN PO PAIN 04/12/19 12:45 Pantoprazole Sodium (Protonix) 40 mg BID PO 04/12/19 21:00 04/17/19 08:44 Prednisone (Deltasone) 5 mg DAILY PO 04/15/19 09:00 04/16/19 09:01 DC 04/16/19 09:23 Prednisone (Deltasone) 10 mg DAILY PO 04/13/19 09:00 04/16/19 09:48 DC 04/16/19 09:23 Rivaroxaban (Xarelto) 15 mg BID@0800,1800 PO 04/12/19 18:00 05/01/19 23:59 04/17/19 08:44 Rivaroxaban (Xarelto) 20 mg DAILY PO 05/02/19 09:00 Senna (Senokot) 1 tab QHS PO 04/12/19 21:00 04/16/19 21:12 Tamsulosin HCl (Flomax) 0.4 mg DAILY PO 04/13/19 09:00 04/17/19 08:44 JANELLE DILLON MD Apr 17, 2019 11:55
[2019-04-17 14:00] VITALS: BP 127/76
--- NOTE | 2019-04-17 16:42 | REP ---
Bilateral deep vein duplex ultrasound: The deep veins demonstrate normal compression, normal Doppler color flow and normal Doppler waveforms with respiration and augmentation from the popliteal veins to the common femoral veins bilaterally except for A small echogenic focus along the wall of the left popliteal vein, likely chronic organized thrombus. The additionally there is a hypoechoic structure with internal echoes in the right popliteal fossa measuring 5.5 x 0.7 x 1.1 cm compatible with a Falcon's cyst containing debris. 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 Electronically Signed by Torrey Sandoval MD 04/17/2019 04:34 P
[2019-04-17 20:00] VITALS: BP 141/70
[2019-04-17] MEDS: SENNA 8.6 MG TAB (SENOKOT) PO SCH (21:00)
[2019-04-17] MEDS: BABY POWDER 120GM TOP SCH (21:22)
[2019-04-17] MEDS: MAGNESIUM SULFATE GRANULES(EPSOM SALT) 1LB TOP SCH (21:31)
[2019-04-18 06:00] VITALS: BP 138/79
[2019-04-18] MEDS: IPRATROPIUM 0.5MG/ALBUTEROL 2.5MG INH SOL UD 3ML (DUONEB)(J7620) NEB SCH ×2 (07:29→19:13)
[2019-04-18] MEDS: TAMSULOSIN 0.4 MG CAP PO SCH (08:40)
[2019-04-18] MEDS: DOCUSATE SODIUM 100 MG CAP PO SCH ×2 (08:40→22:04)
[2019-04-18] MEDS: PANTOPRAZOLE 40MG TAB (PROTONIX) PO SCH ×2 (08:40→22:04)
[2019-04-18] MEDS: diltiaZEM **CD** 180 MG CAP PO SCH ×2 (08:40→22:03)
[2019-04-18] MEDS: RIVAROXABAN 15 MG TAB (XARELTO) PO SCH ×2 (08:40→17:11)
[2019-04-18] MEDS: ACETAMINOPHEN 500 MG TAB PO SCH ×3 (08:41→22:03)
[2019-04-18] MEDS: REMEDY PHYTOPLEX Z-GUARD PASTE 113GM TUBE (FROM STOREROOM PRODUCT) TOP SCH ×3 (08:42→21:00)
[2019-04-18] MEDS: ANALGESIC BALM CRM 120 GM TOP SCH ×3 (08:42→22:04)
--- NOTE | 2019-04-18 12:15 | IPNPDOC ---
PM&R Progress Note DATE OF SERVICE: Apr 18, 2019 Ledge Man Progress Note Subjective: Patient seen in his room stating his right hip hurts a little after therapy and hew was instructed to improve upon his gluteal squeezes. REVIEW OF SYSTEMS: The following is a completed review of systems and has been reviewed. Review of systems otherwise unremarkable. PAIN: Patient self reports right hip and thigh pain (chronic) EYES: No recent vision changes EARS, NOSE, & THROAT: No throat pain, or dysphagia, or rhinorrhea CARDIOVASCULAR: Denies chest pain or palpitations PULMONARY: Denies shortness of breath GASTROINTESTINAL: +constipation (improving) GENITOURINARY: denies dysuria MUSCULOSKELETAL: left ankle swelling NEUROLOGICAL:denies focal tremor or seizure activity HEMATOLOGICAL: denies easy bruising SKIN: + palmar peeling skin PSYCHIATRIC: Unremarkable All other review of systems found to be negative. PHYSICAL EXAMINATION: VITAL SIGNS: Please see below. GENERAL: Pleasant and cooperative. No acute distress. HEENT: PERRL. Extraocular movements intact. Clear conjunctiva, mild facial flu shing CARDIOVASCULAR: Regular rate and rhythm. No murmurs, rubs, or gallops LUNGS: Clear to auscultation bilaterally. No wheezes. No rhonchi ABDOMEN: Soft, nontender, nondistended. Positive bowel sounds. Normal active bowel sounds NEUROLOGICAL: Alert and oriented times three. Cranial nerves II through XII grossly intact. Sensation grossly intact EXTREMITIES: 5\5 strength bilateral upper extremities. >3\5 strength right hip flexion, 5/5 ankle DF/EHL/PF (limited due to knee immobilizer). 5/5 strength in left lower extremity. Left ankle, non-TTP, no erythema or warmth SKIN: bilat feet with macerated interdigital spaces (improving), no ulcers, palmar hand surface with peeling skin, sacral area with blanchable erythema ASSESSMENT:88-year-old M with past medical history of chronic diastolic dysfucntion with PM who presents status post fall with right tibial plateau fracture PLAN: 1. Rehab- PT/OT advance gait training and ADL management WBAT to RLE with brace to be worn at all times when OOB- ambulating well in therapy 2. Neuro: hx of dementia- monitor for delirium-patient with visual hallucination yesterday, improved today 3. Cardiac/: Hx of chronic CHF with Afib and PM- c/u diltazem and Xarelto, daily weights, fluid restrict to 1800cc, home torsemide on hold per cardiology recs for pre-renal azotemia (per and patient he did not take any medications at home) -medicine consulted to assist in management -aortic aneurysm to be followed by PMD 4. Resp: recent dx of PE, c/u 21 day course of Xarelto 15mg BID then transition to 20mg daily -c/u supplemental 02, encourage incentive spirometry, monitor for infection 5. GI: protonix BID, FOBT negative -tums prn 6. 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 DVT ppx: on full dose Xarelto-dopplers +chronic left popliteal DVT, discussed case with vascular surgery who recommends c/u current AC and no need for IVC as patient has already the insult of a PE, recs appreciated 8. : hx of BPH c/u flomax 9. Leukocytosis: possibly reactionary in setting of recent tibial plateau fracture vs due to steroids 10.Pain: Tylenol standing, patient reporting he is averse to pain pills and all medications in general -c/u menthol salicylate to right hip/thigh area 11. Ortho: Right tibial plateau fracture- ortho consulted, f/u 4-6 weeks, brace to be worn when out of bed 12. Rheum: possible left ankle gout, c/u short course of prednisone-uric acid WNL 13 Skin: Epsom salt soaks for bilat feet and talc powder to keep interdigital spaces dry 14. RLE edema- acewrap and elevate-improving 14. dispo: 04/24/19 to home, progressing towards goals Allergies Coded Allergies: atorvastatin (Verified Adverse Reaction, Intermediate, legs hurt, 04/08/19) Vital Signs Vital Signs Date Time Temp Pulse Resp B/P (MAP) Pulse Ox O2 Delivery O2 Flow Rate FiO2 04/18/19 08:40 66 138/79 04/18/19 06:00 97.7 18 95 Room Air Microbiology Microbiology 04/15/19 Stool Occult Blood ([place]) - Final, Complete Current Medications Current Medications Current Medications Medications (Trade) Dose Ordered Sig/Devonte Route PRN Reason Start Time Stop Time Status Last Admin Dose Admin Acetaminophen (Tylenol Tab) 1,000 mg TID PO 04/12/19 16:00 04/18/19 08:41 Albuterol/ Ipratropium (Duoneb (Ipr 0.5mg/Alb 2.5mg)) 3 ml RBID NEB 04/12/19 20:00 04/16/19 07:19 Calcium Carbonate (Tums) 1,000 mg Q4HP PRN PO HEARTBURN 04/12/19 12:45 Diltiazem HCl (Cardizem Cd) 180 mg BID PO 04/12/19 21:00 04/18/19 08:40 Docusate Sodium (Colace) 100 mg BID PO 04/12/19 21:00 04/18/19 08:40 Magnesium Hydroxide (Milk Of Magnesia) 30 ml DAILYPRN PRN PO CONSTIPATION 04/12/19 12:45 Magnesium Sulfate (Epsom Salt) please soak bilate... QHS TOP 04/12/19 21:00 04/17/19 21:31 Menthol/Methyl Salicylate (Bengay Cream) right groin and anter... TID TOP 04/16/19 16:00 04/18/19 08:42 Oxycodone HCl (Roxicodone, Oxyir) 5 mg Q4HP PRN PO PAIN 04/12/19 12:45 04/18/19 08:54 DC Pantoprazole Sodium (Protonix) 40 mg BID PO 04/12/19 21:00 04/18/19 08:40 Prednisone (Deltasone) 5 mg DAILY PO 04/15/19 09:00 04/16/19 09:01 DC 04/16/19 09:23 Prednisone (Deltasone) 10 mg DAILY PO 04/13/19 09:00 04/16/19 09:48 DC 04/16/19 09:23 Rivaroxaban (Xarelto) 15 mg BID@0800,1800 PO 04/12/19 18:00 05/01/19 23:59 04/18/19 08:40 Rivaroxaban (Xarelto) 20 mg DAILY PO 05/02/19 09:00 Senna (Senokot) 1 tab QHS PO 04/12/19 21:00 04/16/19 21:12 Talc (Baby Powder) 1 dose QHS TOP 04/17/19 21:00 04/17/19 21:22 Tamsulosin HCl (Flomax) 0.4 mg DAILY PO 04/13/19 09:00 04/18/19 08:40 JANELLE DILLON MD Apr 18, 2019 12:15
[2019-04-18 14:00] VITALS: BP 140/90
[2019-04-18] MEDS: MAGNESIUM SULFATE GRANULES(EPSOM SALT) 1LB TOP SCH (21:00)
[2019-04-18] MEDS: SENNA 8.6 MG TAB (SENOKOT) PO SCH (22:03)
[2019-04-18] MEDS: BABY POWDER 120GM TOP SCH (22:04)
[2019-04-18 23:24] VITALS: BP 139/75
[2019-04-19 05:22] VITALS: BP 131/88
[2019-04-19] MEDS: IPRATROPIUM 0.5MG/ALBUTEROL 2.5MG INH SOL UD 3ML (DUONEB)(J7620) NEB SCH ×2 (07:07→19:43)
[2019-04-19] MEDS: PANTOPRAZOLE 40MG TAB (PROTONIX) PO SCH ×2 (10:07→21:58)
[2019-04-19] MEDS: TAMSULOSIN 0.4 MG CAP PO SCH (10:07)
[2019-04-19] MEDS: RIVAROXABAN 15 MG TAB (XARELTO) PO SCH ×2 (10:07→17:28)
[2019-04-19] MEDS: diltiaZEM **CD** 180 MG CAP PO SCH ×2 (10:08→21:58)
[2019-04-19] MEDS: ACETAMINOPHEN 500 MG TAB PO SCH ×3 (10:09→21:59)
[2019-04-19] MEDS: DOCUSATE SODIUM 100 MG CAP PO SCH ×2 (10:09→21:00)
[2019-04-19] MEDS: ANALGESIC BALM CRM 120 GM TOP SCH ×4 (10:10→22:01)
[2019-04-19] MEDS: REMEDY PHYTOPLEX Z-GUARD PASTE 113GM TUBE (FROM STOREROOM PRODUCT) TOP SCH ×3 (10:10→22:02)
[2019-04-19 14:00] VITALS: BP 110/77
--- NOTE | 2019-04-19 17:27 | IPNPDOC ---
PM&R Progress Note DATE OF SERVICE: Apr 19, 2019 [employer] Progress Note Subjective: Patient seen in therapy stating he feels well overall and has no complaints. REVIEW OF SYSTEMS: The following is a completed review of systems and has been reviewed. Review of systems otherwise unremarkable. PAIN: Patient self reports right hip and thigh pain (chronic) EYES: No recent vision changes EARS, NOSE, & THROAT: No throat pain, or dysphagia, or rhinorrhea CARDIOVASCULAR: Denies chest pain or palpitations PULMONARY: Denies shortness of breath GASTROINTESTINAL: +constipation (improving) GENITOURINARY: denies dysuria MUSCULOSKELETAL: left ankle swelling NEUROLOGICAL:denies focal tremor or seizure activity HEMATOLOGICAL: denies easy bruising SKIN: + palmar peeling skin PSYCHIATRIC: Unremarkable All other review of systems found to be negative. PHYSICAL EXAMINATION: VITAL SIGNS: Please see below. GENERAL: Pleasant and cooperative. No acute distress. HEENT: PERRL. Extraocular movements intact. Clear conjunctiva, mild facial flushing CARDIOVASCULAR: Regular rate and rhythm. No murmurs, rubs, or gallops LUNGS: Clear to auscultation bilaterally. No wheezes. No rhonchi ABDOMEN: Soft, nontender, nondistended. Positive bowel sounds. Normal active bowel sounds NEUROLOGICAL: Alert and oriented times three. Cranial nerves II through XII grossly intact. Sensation grossly intact EXTREMITIES: 5\5 strength bilateral upper extremities. >3\5 strength right hip flexion, 5/5 ankle DF/EHL/PF (limited due to knee immobilizer). 5/5 strength in left lower extremity. Left ankle, non-TTP, no erythema or warmth SKIN: bilat feet with macerated interdigital spaces (improving), no ulcers, palmar hand surface with peeling skin, sacral area with blanchable erythema ASSESSMENT:88-year-old M with past medical history of chronic diastolic dysfucntion with PM who presents status post fall with right tibial plateau fracture PLAN: 1. Rehab- PT/OT advance gait training and ADL management WBAT to RLE with brace to be worn at all times when OOB- ambulating well in therapy 2. Neuro: hx of dementia- monitor for delirium-patient with visual hallucination yesterday, improved today 3. Cardiac/: Hx of chronic CHF with Afib and PM- c/u diltazem and Xarelto, daily weights, fluid restrict to 1800cc, home torsemide on hold per cardiology recs for pre-renal azotemia (per and patient he did not take any medications at home) -medicine consulted to assist in management -aortic aneurysm to be followed by PMD 4. Resp: recent dx of PE, c/u 21 day course of Xarelto 15mg BID then transition to 20mg daily -c/u supplemental 02, encourage incentive spirometry, monitor for infection 5. GI: protonix BID, FOBT negative -tums prn 6. 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 DVT ppx: on full dose Xarelto-dopplers +chronic left popliteal DVT, discussed case with vascular surgery who recommends c/u current AC and no need for IVC as patient has already the insult of a PE, recs appreciated 8. : hx of BPH c/u flomax 9. Leukocytosis: possibly reactionary in setting of recent tibial plateau fracture vs due to steroids 10.Pain: Tylenol standing, patient reporting he is averse to pain pills and all medications in general -c/u menthol salicylate to right hip/thigh area 11. Ortho: Right tibial plateau fracture- ortho consulted, f/u 4-6 weeks, brace to be worn when out of bed 12. Rheum: possible left ankle gout, c/u short course of prednisone-uric acid WNL 13 Skin: Epsom salt soaks for bilat feet and talc powder to keep interdigital spaces dry, left heel blister skin prep, optifoam, offload 14. RLE edema- acewrap and elevate-improving 14. dispo: 04/24/19 to home, progressing towards goals Allergies Coded Allergies: atorvastatin (Verified Adverse Reaction, Intermediate, legs hurt, 04/08/19) Vital Signs Vital Signs Date Time Temp Pulse Resp B/P (MAP) Pulse Ox O2 Delivery O2 Flow Rate FiO2 04/19/19 14:00 96.8 55 19 110/77 (88) 100 Room Air Microbiology Microbiology 04/15/19 Stool Occult Blood ([place]) - Final, Complete Current Medications Current Medications Current Medications Medications (Trade) Dose Ordered Sig/Devonte Route PRN Reason Start Time Stop Time Status Last Admin Dose Admin Acetaminophen (Tylenol Tab) 1,000 mg TID PO 04/12/19 16:00 04/19/19 10:09 Albuterol/ Ipratropium (Duoneb (Ipr 0.5mg/Alb 2.5mg)) 3 ml RBID NEB 04/12/19 20:00 04/16/19 07:19 Calcium Carbonate (Tums) 1,000 mg Q4HP PRN PO HEARTBURN 04/12/19 12:45 Diltiazem HCl (Cardizem Cd) 180 mg BID PO 04/12/19 21:00 04/19/19 10:08 Docusate Sodium (Colace) 100 mg BID PO 04/12/19 21:00 04/18/19 22:04 Magnesium Hydroxide (Milk Of Magnesia) 30 ml DAILYPRN PRN PO CONSTIPATION 04/12/19 12:45 Magnesium Sulfate (Epsom Salt) please soak bilate... QHS TOP 04/12/19 21:00 04/18/19 21:00 Menthol/Methyl Salicylate (Bengay Cream) right groin and anter... TID TOP 04/16/19 16:00 04/19/19 10:10 Oxycodone HCl (Roxicodone, Oxyir) 5 mg Q4HP PRN PO PAIN 04/12/19 12:45 04/18/19 08:54 DC Pantoprazole Sodium (Protonix) 40 mg BID PO 04/12/19 21:00 04/19/19 10:07 Prednisone (Deltasone) 5 mg DAILY PO 04/15/19 09:00 04/16/19 09:01 DC 04/16/19 09:23 Prednisone (Deltasone) 10 mg DAILY PO 04/13/19 09:00 04/16/19 09:48 DC 04/16/19 09:23 Rivaroxaban (Xarelto) 15 mg BID@0800,1800 PO 04/12/19 18:00 05/01/19 23:59 04/19/19 10:07 Rivaroxaban (Xarelto) 20 mg DAILY PO 05/02/19 09:00 Senna (Senokot) 1 tab QHS PO 04/12/19 21:00 04/18/19 22:03 Talc (Baby Powder) 1 dose QHS TOP 04/17/19 21:00 04/18/19 22:04 Tamsulosin HCl (Flomax) 0.4 mg DAILY PO 04/13/19 09:00 04/19/19 10:07 JANELLE DILLON MD Apr 19, 2019 17:27
[2019-04-19] MEDS: SENNA 8.6 MG TAB (SENOKOT) PO SCH (21:00)
[2019-04-19] MEDS: MAGNESIUM SULFATE GRANULES(EPSOM SALT) 1LB TOP SCH (21:00)
[2019-04-19 21:10] VITALS: BP 135/83
[2019-04-19] MEDS: BABY POWDER 120GM TOP SCH (22:00)
[2019-04-20 06:00] VITALS: BP 128/75
[2019-04-20] MEDS: IPRATROPIUM 0.5MG/ALBUTEROL 2.5MG INH SOL UD 3ML (DUONEB)(J7620) NEB SCH ×2 (07:43→20:00)
[2019-04-20] MEDS: TAMSULOSIN 0.4 MG CAP PO SCH (08:20)
[2019-04-20] MEDS: ACETAMINOPHEN 500 MG TAB PO SCH ×4 (08:21→20:55)
[2019-04-20] MEDS: DOCUSATE SODIUM 100 MG CAP PO SCH ×2 (08:21→20:56)
[2019-04-20] MEDS: RIVAROXABAN 15 MG TAB (XARELTO) PO SCH ×2 (08:21→17:39)
[2019-04-20] MEDS: PANTOPRAZOLE 40MG TAB (PROTONIX) PO SCH ×2 (08:21→20:56)
[2019-04-20] MEDS: diltiaZEM **CD** 180 MG CAP PO SCH ×2 (08:22→20:56)
[2019-04-20] MEDS: ANALGESIC BALM CRM 120 GM TOP SCH ×3 (08:25→20:57)
[2019-04-20] MEDS: REMEDY PHYTOPLEX Z-GUARD PASTE 113GM TUBE (FROM STOREROOM PRODUCT) TOP SCH ×3 (08:26→20:57)
[2019-04-20 14:00] VITALS: BP 132/76
[2019-04-20 20:39] VITALS: BP 128/56
[2019-04-20] MEDS: SENNA 8.6 MG TAB (SENOKOT) PO SCH (20:56)
[2019-04-20] MEDS: BABY POWDER 120GM TOP SCH (20:56)
[2019-04-20] MEDS: MAGNESIUM SULFATE GRANULES(EPSOM SALT) 1LB TOP SCH (20:57)
[2019-04-21 06:00] VITALS: BP 126/82
[2019-04-21] MEDS: IPRATROPIUM 0.5MG/ALBUTEROL 2.5MG INH SOL UD 3ML (DUONEB)(J7620) NEB SCH ×2 (08:00→20:00)
[2019-04-21] MEDS: diltiaZEM **CD** 180 MG CAP PO SCH ×2 (09:05→21:05)
[2019-04-21] MEDS: RIVAROXABAN 15 MG TAB (XARELTO) PO SCH ×2 (09:05→16:51)
[2019-04-21] MEDS: PANTOPRAZOLE 40MG TAB (PROTONIX) PO SCH ×2 (09:05→21:05)
[2019-04-21] MEDS: TAMSULOSIN 0.4 MG CAP PO SCH (09:05)
[2019-04-21] MEDS: DOCUSATE SODIUM 100 MG CAP PO SCH ×2 (09:05→21:00)
[2019-04-21] MEDS: ACETAMINOPHEN 500 MG TAB PO SCH ×3 (09:06→21:05)
[2019-04-21] MEDS: REMEDY PHYTOPLEX Z-GUARD PASTE 113GM TUBE (FROM STOREROOM PRODUCT) TOP SCH ×3 (09:08→21:06)
[2019-04-21] MEDS: ANALGESIC BALM CRM 120 GM TOP SCH ×3 (09:09→21:00)
[2019-04-21 14:00] VITALS: BP 123/66
[2019-04-21 20:00] VITALS: BP_SYST 132; BP_SYST 136; BP_DIAS 61; BP_DIAS 74
[2019-04-21] MEDS: SENNA 8.6 MG TAB (SENOKOT) PO SCH (21:00)
[2019-04-21] MEDS: BABY POWDER 120GM TOP SCH (21:00)
[2019-04-21] MEDS: MAGNESIUM SULFATE GRANULES(EPSOM SALT) 1LB TOP SCH (21:00)
[2019-04-22 06:00] VITALS: BP 147/86
[2019-04-22 06:47] LABS: BASO # 0.1 10^3/uL (0.0-0.2); BASO % 1.3 % (0.0-1.0); EOS # 0.4 10^3/uL (0.0-0.5); EOS % 3.5 % (0.0-3.0); HEMATOCRIT 42.4 % (42.0-52.0); HEMOGLOBIN 14.2 g/dl (13.5-17.5); LYMPH # 1.7 10^3/uL (1.5-5.0); LYMPH % 15.3 % (24.0-44.0); MEAN CORPUSCULAR HEMOGLOBIN 33.9 pg (27.0-33.0); MEAN CORPUSCULAR HGB CONC 33.5 g/dl (32.0-36.5); MEAN CORPUSCULAR VOLUME 101.2 fl (80.0-96.0); MONO # 1.4 10^3/uL (0.0-0.8); MONO % 12.4 % (0.0-5.0); NEUTROPHILS # 7.1 10^3/uL (1.5-8.5); NEUTROPHILS % 65.3 % (36.0-66.0); PLATELET COUNT, AUTOMATED 507 10^3/uL (150-450); RED BLOOD COUNT 4.19 10^6/uL (4.30-6.10); WHITE BLOOD COUNT 10.9 10^3/uL (4.0-10.0)
[2019-04-22 07:10] LABS: BLOOD UREA NITROGEN 13 MG/DL (7-18); CALCIUM LEVEL 8.1 MG/DL (8.8-10.2); CARBON DIOXIDE LEVEL 28 MEQ/L (21-32); CHLORIDE LEVEL 105 MEQ/L (98-107); CREATININE FOR GFR 0.87 MG/DL (0.70-1.30); GLOMERULAR FILTRATION RATE > 60.0 (>35); GLUCOSE, FASTING 101 MG/DL (70-100); POTASSIUM SERUM 4.1 MEQ/L (3.5-5.1); SODIUM LEVEL 139 MEQ/L (136-145)
[2019-04-22] MEDS: IPRATROPIUM 0.5MG/ALBUTEROL 2.5MG INH SOL UD 3ML (DUONEB)(J7620) NEB SCH ×2 (07:43→19:55)
[2019-04-22] MEDS: RIVAROXABAN 15 MG TAB (XARELTO) PO SCH ×2 (07:55→17:22)
[2019-04-22] MEDS: TAMSULOSIN 0.4 MG CAP PO SCH (07:55)
[2019-04-22] MEDS: ACETAMINOPHEN 500 MG TAB PO SCH ×3 (07:55→20:39)
[2019-04-22] MEDS: diltiaZEM **CD** 180 MG CAP PO SCH ×2 (07:55→20:38)
[2019-04-22] MEDS: PANTOPRAZOLE 40MG TAB (PROTONIX) PO SCH ×2 (07:55→20:38)
[2019-04-22] MEDS: ANALGESIC BALM CRM 120 GM TOP SCH ×3 (07:56→20:39)
[2019-04-22] MEDS: DOCUSATE SODIUM 100 MG CAP PO SCH ×2 (07:57→20:39)
[2019-04-22] MEDS: REMEDY PHYTOPLEX Z-GUARD PASTE 113GM TUBE (FROM STOREROOM PRODUCT) TOP SCH ×3 (07:57→20:39)
--- NOTE | 2019-04-22 13:35 | IPNPDOC ---
PM&R Progress Note DATE OF SERVICE: Apr 22, 2019 Supply Chain Coordinator Progress Note Subjective: Patient seen in his room stating his pain is overall much better and he is continuing to offload his left heel. REVIEW OF SYSTEMS: The following is a completed review of systems and has been reviewed. Review of systems otherwise unremarkable. PAIN: Patient self reports right hip and thigh pain (chronic) EYES: No recent vision changes EARS, NOSE, & THROAT: No throat pain, or dysphagia, or rhinorrhea CARDIOVASCULAR: Denies chest pain or palpitations PULMONARY: Denies shortness of breath GASTROINTESTINAL: +constipation (improving) GENITOURINARY: denies dysuria MUSCULOSKELETAL: left ankle swelling NEUROLOGICAL:denies focal tremor or seizure activity HEMATOLOGICAL: denies easy bruising SKIN: + palmar peeling skin PSYCHIATRIC: Unremarkable All other review of systems found to be negative. PHYSICAL EXAMINATION: VITAL SIGNS: Please see below. GENERAL: Pleasant and cooperative. No acute distress. HEENT: PERRL. Extraocular movements intact. Clear conjunctiva, mild facial flushing CARDIOVASCULAR: Regular rate and rhythm. No murmurs, rubs, or gallops LUNGS: Clear to auscultation bilaterally. No wheezes. No rhonchi ABDOMEN: Soft, nontender, nondistended. Positive bowel sounds. Normal active bowel sounds NEUROLOGICAL: Alert and oriented times three. Cranial nerves II through XII grossly intact. Sensation grossly intact EXTREMITIES: 5\5 strength bilateral upper extremities. >3\5 strength right hip flexion, 5/5 ankle DF/EHL/PF (limited due to knee immobilizer). 5/5 strength in left lower extremity. Left ankle, non-TTP, no erythema or warmth SKIN: bilat feet with macerated interdigital spaces (improving), palmar hand surface with peeling skin, sacral area with blanchable erythema left heel + blister ASSESSMENT:88-year-old M with past medical history of chronic diastolic dysfucntion with PM who presents status post fall with right tibial plateau fracture PLAN: 1. Rehab- PT/OT advance gait training and ADL management WBAT to RLE with brace to be worn at all times when OOB- ambulating well in therapy 2. Neuro: hx of dementia- monitor for delirium-patient with visual hallucination yesterday, improved today 3. Cardiac/: Hx of chronic CHF with Afib and PM- c/u diltazem and Xarelto, daily weights, fluid restrict to 1800cc, home torsemide on hold per cardiology recs for pre-renal azotemia (per and patient he did not take any medications at home) -medicine consulted to assist in management -aortic aneurysm to be followed by PMD 4. Resp: recent dx of PE, c/u 21 day course of Xarelto 15mg BID then transition to 20mg daily -c/u supplemental 02, encourage incentive spirometry, monitor for infection 5. GI: protonix BID, FOBT negative -tums prn 6. 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 DVT ppx: on full dose Xarelto-dopplers +chronic left popliteal DVT, discussed case with vascular surgery who recommends c/u current AC and no need for IVC as patient has already the insult of a PE, recs appreciated 8. : hx of BPH c/u flomax 9. Leukocytosis: possibly reactionary in setting of recent tibial plateau fracture vs due to steroids 10.Pain: Tylenol standing, patient reporting he is averse to pain pills and all medications in general -c/u menthol salicylate to right hip/thigh area 11. Ortho: Right tibial plateau fracture- ortho consulted, f/u 4-6 weeks, brace to be worn when out of bed 12. Rheum: possible left ankle gout, s/p short course of prednisone-uric acid WNL 13 Skin: Epsom salt soaks for bilat feet and talc powder to keep interdigital spaces dry, left heel blister skin prep, optilock, offload 14. RLE edema- acewrap and elevate-improving 14. dispo: 04/24/19 to home, progressing towards goals Allergies Coded Allergies: atorvastatin (Verified Adverse Reaction, Intermediate, legs hurt, 04/08/19) Vital Signs Vital Signs Date Time Temp Pulse Resp B/P (MAP) Pulse Ox O2 Delivery O2 Flow Rate FiO2 04/22/19 07:55 88 147/86 04/22/19 06:00 97.1 18 96 Room Air Laboratory Data CBC/BMP Laboratory Tests 04/22/19 06:25 Labs 24H Laboratory Tests 2 04/22/19 06:25: Immature Granulocyte % (Auto) 2.2, Neutrophils (%) (Auto) 65.3, Lymphocytes (%) (Auto) 15.3L, Monocytes (%) (Auto) 12.4H, Eosinophils (%) (Auto) 3.5H, Basophils (%) (Auto) 1.3H, Neutrophils # (Auto) 7.1, Lymphocytes # (Auto) 1.7, Monocytes # (Auto) 1.4H, Eosinophils # (Auto) 0.4, Basophils # (Auto) 0.1, Nucleated Red Blood Cells % (auto) 0.0, Anion Gap 6L, Glomerular Filtration Rate > 60.0, Calcium Level 8.1L Microbiology Microbiology 04/15/19 Stool Occult Blood ([place]) - Final, Complete Current Medications Current Medications Current Medications Medications (Trade) Dose Ordered Sig/Devonte Route PRN Reason Start Time Stop Time Status Last Admin Dose Admin Acetaminophen (Tylenol Tab) 1,000 mg TID PO 04/12/19 16:00 04/22/19 07:55 Albuterol/ Ipratropium (Duoneb (Ipr 0.5mg/Alb 2.5mg)) 3 ml RBID NEB 04/12/19 20:00 04/16/19 07:19 Calcium Carbonate (Tums) 1,000 mg Q4HP PRN PO HEARTBURN 04/12/19 12:45 Diltiazem HCl (Cardizem Cd) 180 mg BID PO 04/12/19 21:00 04/22/19 07:55 Docusate Sodium (Colace) 100 mg BID PO 04/12/19 21:00 04/21/19 09:05 Magnesium Hydroxide (Milk Of Magnesia) 30 ml DAILYPRN PRN PO CONSTIPATION 04/12/19 12:45 Magnesium Sulfate (Epsom Salt) please soak bilate... QHS TOP 04/12/19 21:00 04/18/19 21:00 Menthol/Methyl Salicylate (Bengay Cream) right groin and anter... TID TOP 04/16/19 16:00 04/22/19 07:56 Oxycodone HCl (Roxicodone, Oxyir) 5 mg Q4HP PRN PO PAIN 04/12/19 12:45 04/18/19 08:54 DC Pantoprazole Sodium (Protonix) 40 mg BID PO 04/12/19 21:00 04/22/19 07:55 Prednisone (Deltasone) 5 mg DAILY PO 04/15/19 09:00 04/16/19 09:01 DC 04/16/19 09:23 Prednisone (Deltasone) 10 mg DAILY PO 04/13/19 09:00 04/16/19 09:48 DC 04/16/19 09:23 Rivaroxaban (Xarelto) 15 mg BID@0800,1800 PO 04/12/19 18:00 05/01/19 23:59 04/22/19 07:55 Rivaroxaban (Xarelto) 20 mg DAILY PO 05/02/19 09:00 Senna (Senokot) 1 tab QHS PO 04/12/19 21:00 04/20/19 20:56 Talc (Baby Powder) 1 dose QHS TOP 04/17/19 21:00 04/20/19 20:56 Tamsulosin HCl (Flomax) 0.4 mg DAILY PO 04/13/19 09:00 04/22/19 07:55 JANELLE DILLON MD Apr 22, 2019 13:35
[2019-04-22 14:00] VITALS: BP 127/75
[2019-04-22 20:00] VITALS: BP 133/70
[2019-04-22] MEDS: SENNA 8.6 MG TAB (SENOKOT) PO SCH (20:39)
[2019-04-22] MEDS: MAGNESIUM SULFATE GRANULES(EPSOM SALT) 1LB TOP SCH (20:40)
[2019-04-22] MEDS: BABY POWDER 120GM TOP SCH (20:40)
[2019-04-23 06:00] VITALS: BP 130/80
[2019-04-23] MEDS: IPRATROPIUM 0.5MG/ALBUTEROL 2.5MG INH SOL UD 3ML (DUONEB)(J7620) NEB SCH ×2 (07:23→21:06)
[2019-04-23] MEDS: PANTOPRAZOLE 40MG TAB (PROTONIX) PO SCH ×2 (08:40→20:40)
[2019-04-23] MEDS: TAMSULOSIN 0.4 MG CAP PO SCH (08:40)
[2019-04-23] MEDS: diltiaZEM **CD** 180 MG CAP PO SCH ×2 (08:40→20:46)
[2019-04-23] MEDS: RIVAROXABAN 15 MG TAB (XARELTO) PO SCH ×2 (08:40→17:59)
[2019-04-23] MEDS: ACETAMINOPHEN 500 MG TAB PO SCH ×3 (08:41→20:41)
[2019-04-23] MEDS: ANALGESIC BALM CRM 120 GM TOP SCH ×3 (08:42→20:44)
[2019-04-23] MEDS: REMEDY PHYTOPLEX Z-GUARD PASTE 113GM TUBE (FROM STOREROOM PRODUCT) TOP SCH ×3 (08:43→20:44)
[2019-04-23] MEDS: DOCUSATE SODIUM 100 MG CAP PO SCH ×2 (08:43→20:44)
[2019-04-23] MEDS ORDERED: FLOM0.4C39 PO (10:04)
[2019-04-23] MEDS ORDERED: XARE20TA PO (10:04)
[2019-04-23] MEDS ORDERED: CARD180C4 PO (10:04)
[2019-04-23 14:00] VITALS: BP 133/75
--- NOTE | 2019-04-23 14:50 | IPNPDOC ---
PM&R Progress Note DATE OF SERVICE: Apr 23, 2019 Anesthesiology Faculty Progress Note Subjective: REVIEW OF SYSTEMS: The following is a completed review of systems and has been reviewed. Review of systems otherwise unremarkable. PAIN: Patient self reports right hip and thigh pain (chronic) EYES: No recent vision changes EARS, NOSE, & THROAT: No throat pain, or dysphagia, or rhinorrhea CARDIOVASCULAR: Denies chest pain or palpitations PULMONARY: Denies shortness of breath GASTROINTESTINAL: +constipation (improving) GENITOURINARY: denies dysuria MUSCULOSKELETAL: left ankle swelling NEUROLOGICAL:denies focal tremor or seizure activity HEMATOLOGICAL: denies easy bruising SKIN: + palmar peeling skin PSYCHIATRIC: Unremarkable All other review of systems found to be negative. PHYSICAL EXAMINATION: VITAL SIGNS: Please see below. GENERAL: Pleasant and cooperative. No acute distress. HEENT: PERRL. Extraocular movements intact. Clear conjunctiva, mild facial flushing CARDIOVASCULAR: Regular rate and rhythm. No murmurs, rubs, or gallops LUNGS: Clear to auscultation bilaterally. No wheezes. No rhonchi ABDOMEN: Soft, nontender, nondistended. Positive bowel sounds. Normal active bowel sounds NEUROLOGICAL: Alert and oriented times three. Cranial nerves II through XII grossly intact. Sensation grossly intact EXTREMITIES: 5\5 strength bilateral upper extremities. >3\5 strength right hip flexion, 5/5 ankle DF/EHL/PF (limited due to knee immobilizer). 5/5 strength in left lower extremity. Left ankle, non-TTP, no erythema or warmth SKIN: bilat feet with macerated interdigital spaces (improving), palmar hand surface with peeling skin, sacral area with blanchable erythema left heel + blister ASSESSMENT:88-year-old M with past medical history of chronic diastolic dysfucntion with PM who presents status post fall with right tibial plateau fracture PLAN: 1. Rehab- PT/OT advance gait training and ADL management WBAT to RLE with brace to be worn at all times when OOB- ambulating well in therapy 2. Neuro: hx of dementia- monitor for delirium-patient with visual hallucination yesterday, improved today 3. Cardiac/: Hx of chronic CHF with Afib and PM- c/u diltazem and Xarelto, daily weights, fluid restrict to 1800cc, home torsemide on hold per cardiology recs for pre-renal azotemia (per and patient he did not take any medications at home) -medicine consulted to assist in management -aortic aneurysm to be followed by PMD 4. Resp: recent dx of PE, c/u 21 day course of Xarelto 15mg BID then transition to 20mg daily -c/u supplemental 02, encourage incentive spirometry, monitor for infection 5. GI: protonix BID, FOBT negative -tums prn 6. 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 DVT ppx: on full dose Xarelto-dopplers +chronic left popliteal DVT, discussed case with vascular surgery who recommends c/u current AC and no need for IVC as patient has already the insult of a PE, recs appreciated 8. : hx of BPH c/u flomax 9. Leukocytosis: possibly reactionary in setting of recent tibial plateau fracture vs due to steroids 10.Pain: Tylenol standing, patient reporting he is averse to pain pills and all medications in general -c/u menthol salicylate to right hip/thigh area 11. Ortho: Right tibial plateau fracture- ortho consulted, f/u 4-6 weeks, brace to be worn when out of bed 12. Rheum: possible left ankle gout, s/p short course of prednisone-uric acid WNL 13 Skin: Epsom salt soaks for bilat feet and talc powder to keep interdigital spaces dry, left heel blister skin prep, optilock, offload 14. RLE edema- acewrap and elevate-improving 14. dispo: 04/24/19 to home, progressing towards goals Allergies Coded Allergies: atorvastatin (Verified Adverse Reaction, Intermediate, legs hurt, 04/08/19) Vital Signs Vital Signs Date Time Temp Pulse Resp B/P (MAP) Pulse Ox O2 Delivery O2 Flow Rate FiO2 04/23/19 14:00 97.3 88 19 133/75 (94) 95 Room Air Microbiology Microbiology 04/15/19 Stool Occult Blood ([place]) - Final, Complete Current Medications Current Medications Current Medications Medications (Trade) Dose Ordered Sig/Devonte Route PRN Reason Start Time Stop Time Status Last Admin Dose Admin Acetaminophen (Tylenol Tab) 1,000 mg TID PO 04/12/19 16:00 04/23/19 08:41 Albuterol/ Ipratropium (Duoneb (Ipr 0.5mg/Alb 2.5mg)) 3 ml RBID NEB 04/12/19 20:00 04/16/19 07:19 Calcium Carbonate (Tums) 1,000 mg Q4HP PRN PO HEARTBURN 04/12/19 12:45 Diltiazem HCl (Cardizem Cd) 180 mg BID PO 04/12/19 21:00 04/23/19 08:40 Docusate Sodium (Colace) 100 mg BID PO 04/12/19 21:00 04/21/19 09:05 Magnesium Hydroxide (Milk Of Magnesia) 30 ml DAILYPRN PRN PO CONSTIPATION 04/12/19 12:45 Magnesium Sulfate (Epsom Salt) please soak bilate... QHS TOP 04/12/19 21:00 04/18/19 21:00 Menthol/Methyl Salicylate (Bengay Cream) right groin and anter... TID TOP 04/16/19 16:00 04/23/19 08:42 Oxycodone HCl (Roxicodone, Oxyir) 5 mg Q4HP PRN PO PAIN 04/12/19 12:45 04/18/19 08:54 DC Pantoprazole Sodium (Protonix) 40 mg BID PO 04/12/19 21:00 04/23/19 08:40 Prednisone (Deltasone) 5 mg DAILY PO 04/15/19 09:00 04/16/19 09:01 DC 04/16/19 09:23 Prednisone (Deltasone) 10 mg DAILY PO 04/13/19 09:00 04/16/19 09:48 DC 04/16/19 09:23 Rivaroxaban (Xarelto) 15 mg BID@0800,1800 PO 04/12/19 18:00 05/01/19 23:59 04/23/19 08:40 Rivaroxaban (Xarelto) 20 mg DAILY PO 05/02/19 09:00 Senna (Senokot) 1 tab QHS PO 04/12/19 21:00 04/20/19 20:56 Talc (Baby Powder) 1 dose QHS TOP 04/17/19 21:00 04/20/19 20:56 Tamsulosin HCl (Flomax) 0.4 mg DAILY PO 04/13/19 09:00 04/23/19 08:40 JANELLE DILLON MD Apr 23, 2019 14:50
[2019-04-23 20:00] VITALS: BP 142/81
[2019-04-23] MEDS: SENNA 8.6 MG TAB (SENOKOT) PO SCH (20:44)
[2019-04-23] MEDS: MAGNESIUM SULFATE GRANULES(EPSOM SALT) 1LB TOP SCH (20:44)
[2019-04-23] MEDS: BABY POWDER 120GM TOP SCH (20:44)
[2019-04-24 06:00] VITALS: BP 128/88
[2019-04-24] MEDS: IPRATROPIUM 0.5MG/ALBUTEROL 2.5MG INH SOL UD 3ML (DUONEB)(J7620) NEB SCH (07:37)
[2019-04-24 08:56] VITALS: BP 128/88
[2019-04-24] MEDS: TAMSULOSIN 0.4 MG CAP PO SCH (08:56)
[2019-04-24] MEDS: PANTOPRAZOLE 40MG TAB (PROTONIX) PO SCH (08:56)
[2019-04-24] MEDS: ACETAMINOPHEN 500 MG TAB PO SCH (08:56)
[2019-04-24] MEDS: RIVAROXABAN 15 MG TAB (XARELTO) PO SCH (08:56)
[2019-04-24] MEDS: diltiaZEM **CD** 180 MG CAP PO SCH (08:56)
[2019-04-24] MEDS: DOCUSATE SODIUM 100 MG CAP PO SCH (08:57)
[2019-04-24] MEDS: REMEDY PHYTOPLEX Z-GUARD PASTE 113GM TUBE (FROM STOREROOM PRODUCT) TOP SCH (09:00)
[2019-04-24] MEDS: ANALGESIC BALM CRM 120 GM TOP SCH (09:00)
[2019-04-24 14:00] VITALS: BP 120/67
--- NOTE | 2019-04-26 09:17 | PMRDS ---
DATE OF ADMISSION: 04/12/2019 DATE OF DISCHARGE: 04/24/2019 CHIEF COMPLAINT/DISCHARGE DIAGNOSIS: Tibial plateau fracture. HISTORY OF PRESENT ILLNESS: 88M pmh chronic diastolic CHF, Afib on AC with PM, dementia, HTN, HLD fell at home and presented to [facility] ED on 04-08-19 complaining of RLE pain and difficulty walking. Doppler of LE was negative for DVT, however femur Xray showed, Suspect medial tibial plateau fracture with depression. Joint effusion at the knee. CTA chest was ordered which showed, There is poor enhancement of a pulmonary arterial branch within the right upper lobe of the lung, suspicious for pulmonary embolism for which he was started on a therapeutic dose of Xarelto in addition to 2 aortic aneurysms and a splenic mass which patient and family opted not to work up further. His diuretic were discontinued per cardiology recs due to pre-renal azotemia and he was seen by orthopedics for his tibial plateau fracture who placed him in a knee extension brace and was instructed to remain WBAT with follow-up in 4-6 weeks. He remained on supplemental oxygen, with persistent leukocytosis thought to be inflammatory and also developed hyponatremia. He was evaluated by therapy, noted to have deficits in mobility and ADLs and deemed medically appropriate for discharge to [facility] on 04-12-19. Upon initial visit patient reports he thinks he is developing gout in his left ankle and would like a short course of prednisone. PAST MEDICAL HISTORY: As per history of present illness (HPI). HOSPITAL COURSE: Patient was admitted and enrolled in a comprehensive physical therapy (PT)/occupational therapy (OT) program. He received 24-hour nursing supervision, and weekly team meetings were held to discuss his progress. The patient complained of right lower extremity pain, which was relieved with menthyl salicylate and standing Tylenol. He was transitioned from Xarelto 15 mg twice a day to 20 daily for a recent diagnosis of pulmonary embolism (PE) and Doppler of his lower extremity showed a chronic left popliteal deep venous thrombosis (DVT), discussed case with vascular surgery, who recommended continued current management and no need for inferior vena cava (IVC) filter at this time. Patient initially presented with mild left ankle swelling and pain. Patient reported he thought it was gout. He was started on a short steroid taper with resolution of his symptoms. He developed a blister on the back of the left heel during his hospital course and received daily wound care. He made significant gains in therapy, was deemed medically and functionally stable to return home. DISCHARGE MEDICATIONS: As per instructions. FUNCTIONAL HISTORY UPON DISCHARGE: Patient was modified independent, able to ambulate 175 feet with a rolling walker and negotiate four stairs at a modified independent level. In occupational therapy, he was modified independent also for functional transfers and dressing. Thank you for this referral.
[2019-05-02] MEDS ORDERED: RIVAROXABAN 20 MG TAB (XARELTO) PO SCH (09:00)
== END 2019-04-24 14:40 | disposition home health service (06) | DRG 559 ==
LOC: M PM&R 15:20
PROVIDERS: ADMIT Physical Medicine & Rehabilitation; ATTEND Physical Medicine & Rehabilitation
DX: S82.144D Nondisplaced bicondylar fracture of right tibia, subsequent encounter for closed fracture with routine healing (principal); I26.99 Other pulmonary embolism without acute cor pulmonale; I50.32 Chronic diastolic (congestive) heart failure; E87.1 Hypo-osmolality and hyponatremia; I48.91 Unspecified atrial fibrillation; F03.90 Unspecified dementia, unspecified severity, without behavioral disturbance, psychotic disturbance, mood disturbance, and anxiety; I71.4 Abdominal aortic aneurysm, without rupture; D72.829 Elevated white blood cell count, unspecified; Z79.01 Long term (current) use of anticoagulants; I11.0 Hypertensive heart disease with heart failure; E78.5 Hyperlipidemia, unspecified; R29.6 Repeated falls; X58.XXXD Exposure to other specified factors, subsequent encounter; R79.89 Other specified abnormal findings of blood chemistry; N40.0 Benign prostatic hyperplasia without lower urinary tract symptoms; M10.9 Gout, unspecified; Z88.8 Allergy status to other drugs, medicaments and biological substances; Z79.899 Other long term (current) drug therapy

== ENCOUNTER → 2019-08-07 | Outpatient (CLI) | payer MEDICARE, OTHER ==
[2019-08-07 13:05] LABS: BLOOD UREA NITROGEN 17 MG/DL (7-18); CALCIUM LEVEL 8.6 MG/DL (8.8-10.2); CARBON DIOXIDE LEVEL 29 MEQ/L (21-32); CHLORIDE LEVEL 105 MEQ/L (98-107); CREATININE FOR GFR 0.78 MG/DL (0.70-1.30); GLOMERULAR FILTRATION RATE > 60.0 (>35); GLUCOSE, FASTING 122 MG/DL (70-100); MAGNESIUM LEVEL 2.1 MG/DL (1.8-2.4); POTASSIUM SERUM 4.4 MEQ/L (3.5-5.1); SODIUM LEVEL 140 MEQ/L (136-145)
== END ==
LOC: M WUC 10:11
PROVIDERS: ATTEND Physician Assistant
DX: I48.21 Permanent atrial fibrillation (principal)

== ENCOUNTER → 2019-11-05 | Outpatient (REF) | payer MEDICARE, OTHER ==
[2019-12-08 15:40] LABS: HEMOGLOBIN 15.8 g/dl (13.5-17.5); MEAN CORPUSCULAR HEMOGLOBIN 33.5 pg (27.0-33.0); MEAN CORPUSCULAR HGB CONC 32.9 g/dl (32.0-36.5); MEAN CORPUSCULAR VOLUME 101.7 fl (80.0-96.0); PLATELET COUNT, AUTOMATED 331 10^3/uL (150-450); RED BLOOD COUNT 4.72 10^6/uL (4.30-6.10)
[2019-12-31 02:38] LABS: BLOOD UREA NITROGEN 15 MG/DL (7-18); CARBON DIOXIDE LEVEL 28 MEQ/L (21-32); CHLORIDE LEVEL 107 MEQ/L (98-107); CREATININE FOR GFR 0.97 MG/DL (0.70-1.30); GLOMERULAR FILTRATION RATE > 60.0 (>35); GLUCOSE, FASTING 93 MG/DL (70-100); POTASSIUM SERUM 4.7 MEQ/L (3.5-5.1); SODIUM LEVEL 142 MEQ/L (136-145)
[2019-12-31 02:39] LABS: ALBUMIN 3.7 GM/DL (3.2-5.2); ALT/SGPT 31 U/L (12-78); BILIRUBIN,TOTAL 0.5 MG/DL (0.2-1.0); CHOLESTEROL LEVEL 198 MG/DL (<200); CHOLESTEROL RISK RATIO 5.076 (<5); HDL CHOLESTEROL 39 MG/DL (>40); LDL CHOLESTEROL 94 MG/DL (<100); MAGNESIUM LEVEL 2.1 MG/DL (1.8-2.4); NON-HDL-C 159 MG/DL; TOTAL PROTEIN 6.7 GM/DL (6.4-8.2); TRIGLYCERIDES LEVEL 326 MG/DL (<150)
== END ==
LOC: M WUC 12:58
PROVIDERS: ATTEND Physician Assistant
DX: I48.21 Permanent atrial fibrillation (principal); E78.2 Mixed hyperlipidemia

== ENCOUNTER → 2020-09-16 | Outpatient (REF) | payer MEDICARE ==
[2020-09-16 16:23] LABS: BASO # 0.2 10^3/uL (0.0-0.2); BASO % 1.3 % (0.0-1.0); EOS # 0.3 10^3/uL (0.0-0.5); HEMOGLOBIN 17.6 g/dl (13.5-17.5); LYMPH # 2.2 10^3/uL (1.5-5.0); LYMPH % 19.8 % (24.0-44.0); MEAN CORPUSCULAR HEMOGLOBIN 33.7 pg (27.0-33.0); MEAN CORPUSCULAR HGB CONC 33.2 g/dl (32.0-36.5); MEAN CORPUSCULAR VOLUME 101.5 fl (80.0-96.0); MONO # 1.7 10^3/uL (0.0-0.8); MONO % 14.9 % (2.0-8.0); NEUTROPHILS # 6.8 10^3/uL (1.5-8.5); NEUTROPHILS % 60.3 % (36.0-66.0); PLATELET COUNT, AUTOMATED 311 10^3/uL (150-450); RED BLOOD COUNT 5.22 10^6/uL (4.30-6.10)
[2020-09-16 16:46] LABS: ALBUMIN 3.8 GM/DL (3.2-5.2); ALT/SGPT 29 U/L (12-78); BILIRUBIN,TOTAL 0.8 MG/DL (0.2-1.0); BLOOD UREA NITROGEN 20 MG/DL (7-18); CALCIUM LEVEL 9.4 MG/DL (8.8-10.2); CARBON DIOXIDE LEVEL 26 MEQ/L (21-32); CHLORIDE LEVEL 106 MEQ/L (98-107); CREATININE FOR GFR 1.02 MG/DL (0.70-1.30); GLOMERULAR FILTRATION RATE > 60.0 (>35); GLUCOSE, FASTING 75 MG/DL (70-100); INR 0.96; POTASSIUM SERUM 4.8 MEQ/L (3.5-5.1); SODIUM LEVEL 141 MEQ/L (136-145); TOTAL PROTEIN 7.4 GM/DL (6.4-8.2)
[2020-09-16 16:54] LABS: WHITE BLOOD COUNT 11.3 10^3/uL (4.0-10.0)
== END ==
LOC: M SFHCADAM 14:20
PROVIDERS: ATTEND Family Medicine
DX: I48.91 Unspecified atrial fibrillation (principal); M79.604 Pain in right leg; Z79.01 Long term (current) use of anticoagulants
CPT/HCPCS: 80053; 85025; 85610; G0463

== ENCOUNTER → 2020-11-09 | Outpatient (REF) | payer MEDICARE ==
[2020-11-09 13:01] LABS: INR 2.88; PROTHROMBIN TIME 30.5 SECONDS (12.7-14.5)
== END ==
LOC: M SFHCADAM 12:25
PROVIDERS: ATTEND Family Medicine
DX: Z79.01 Long term (current) use of anticoagulants (principal)

== ENCOUNTER → 2020-11-18 | Outpatient (REF) | payer MEDICARE ==
[2020-11-18 13:02] LABS: INR 2.72; PROTHROMBIN TIME 29.2 SECONDS (12.7-14.5)
== END ==
LOC: M SFHCADAM 11:11
PROVIDERS: ATTEND Family Medicine
DX: I48.91 Unspecified atrial fibrillation (principal); Z79.01 Long term (current) use of anticoagulants
CPT/HCPCS: 85610; G0463

== ENCOUNTER → 2020-12-03 | Outpatient (CLI) | payer MEDICARE ==
--- NOTE | 2020-12-03 11:24 | REP ---
INDICATION: PAIN IN RIGHT LEG. COMPARISON: None. TECHNIQUE: Five views FINDINGS: There is prominent bilateral marginal osteophytosis but heaviest on the left at the L1-2 level. There is moderate universal disc space narrowing at every level. Heavy degenerative facet joint changes are seen bilaterally at every level but particularly L3-4 to L5-S1. Vertebral body height and alignment is within normal limits. There is anterior lipping at every level. IMPRESSION: Chronic changes as described above. <Electronically signed by Evan Hilario > 12/03/20 [id number]
--- NOTE | 2020-12-03 11:24 | REP ---
INDICATION: PAIN IN RIGHT LEG. COMPARISON: 04/08/2019. TECHNIQUE: Two views right hip. FINDINGS: There is no acute fracture or dislocation. There is severe joint space narrowing with associated subchondral sclerosis and cystic change. Large spurs are noted at the margins of the joint. There is flattening of the superior femoral head. IMPRESSION: Severe arthritic changes right hip joint appear similar to the prior exam. <Electronically signed by Torrey Warner > 12/03/20 [id number]
--- NOTE | 2020-12-03 11:27 | REP ---
INDICATION: PAIN IN RIGHT LEG COMPARISON: 04/08/2019. TECHNIQUE: Six views right knee. FINDINGS: No acute fracture or dislocation is seen. The osseous structures are osteopenic. There is mild medial joint space narrowing and subchondral sclerosis. There are vascular calcifications in the posterior soft tissues. There is mild patellofemoral joint space narrowing and subchondral sclerosis. There is no radiographic evidence of a significant joint effusion. IMPRESSION: No fracture or dislocation. Mild degenerative changes. <Electronically signed by Torrey Warner > 12/03/20 [id number]
== END ==
LOC: M ADAMS 10:38
PROVIDERS: ATTEND Family Medicine
DX: M79.604 Pain in right leg (principal); M51.36 Other intervertebral disc degeneration, lumbar region; Z79.01 Long term (current) use of anticoagulants; M16.11 Unilateral primary osteoarthritis, right hip

== ENCOUNTER → 2020-12-03 | Outpatient (REF) | payer MEDICARE ==
[2020-12-03 12:37] LABS: INR 3.85; PROTHROMBIN TIME 38.1 SECONDS (12.7-14.5)
== END ==
LOC: M SFHCADAM 10:49
PROVIDERS: ATTEND Family Medicine
DX: Z79.01 Long term (current) use of anticoagulants (principal)

== ENCOUNTER → 2020-12-11 | Outpatient (REF) | payer MEDICARE ==
[2020-12-11 14:11] LABS: INR 3.16; PROTHROMBIN TIME 32.8 SECONDS (12.7-14.5)
== END ==
LOC: M SFHCADAM 11:43
PROVIDERS: ATTEND Family Medicine
DX: I48.91 Unspecified atrial fibrillation (principal); Z79.01 Long term (current) use of anticoagulants

== ENCOUNTER → 2020-12-17 | Outpatient (REF) | payer MEDICARE ==
[2020-12-17 14:06] LABS: INR 2.55; PROTHROMBIN TIME 27.8 SECONDS (12.7-14.5)
== END ==
LOC: M SFHCADAM 10:38
PROVIDERS: ATTEND Family Medicine
DX: Z79.01 Long term (current) use of anticoagulants (principal); I48.91 Unspecified atrial fibrillation

== ENCOUNTER → 2021-09-22 | Outpatient (CLI) | payer MEDICARE ==
[~2021-09-22] MED LIST changes: +AMOX875T2 PO; +METO1TAB87 PO; +WARF-20; +WARF-20 PO; +WARF4TAB51; +WARF4TAB51 PO
== END ==
LOC: M ADAMS 13:00
PROVIDERS: ATTEND Family Medicine
DX: M16.11 Unilateral primary osteoarthritis, right hip (principal); M25.751 Osteophyte, right hip; Z91.81 History of falling

== ENCOUNTER 2021-09-30 15:57 | Inpatient (IN) | payer MEDICARE ==
[~2021-09-30] VITALS: Ht 170.2 cm; Wt 78.9 kg
[~2021-09-30 15:57] MED LIST changes: -AMOX875T2 PO; -METO1TAB87 PO; -WARF-20; -WARF-20 PO; -WARF4TAB51; -WARF4TAB51 PO
[2021-09-30] MEDS ORDERED: WARF4TAB51 (16:43)
[2021-09-30] MEDS ORDERED: WARF-20 (16:43)
[2021-09-30 18:41] LABS: BASO # 0.1 10^3/uL (0.0-0.2); BASO % 0.9 % (0.0-1.0); EOS # 0.2 10^3/uL (0.0-0.5); EOS % 1.9 % (0.0-3.0); HEMOGLOBIN 14.6 g/dl (13.5-17.5); LYMPH # 1.9 10^3/uL (1.5-5.0); LYMPH % 17.5 % (24.0-44.0); MEAN CORPUSCULAR HGB CONC 33.2 g/dl (32.0-36.5); MEAN CORPUSCULAR VOLUME 102.6 fl (80.0-96.0); MONO % 9.3 % (2.0-8.0); NEUTROPHILS # 7.7 10^3/uL (1.5-8.5); NEUTROPHILS % 69.4 % (36.0-66.0); PLATELET COUNT, AUTOMATED 355 10^3/uL (150-450); RED BLOOD COUNT 4.29 10^6/uL (4.30-6.10); WHITE BLOOD COUNT 11.1 10^3/uL (4.0-10.0)
[2021-09-30 18:59] LABS: INR 4.31; PROTHROMBIN TIME 41.5 SECONDS (12.7-14.5)
[2021-09-30 19:00] LABS: PARTIAL THROMBOPLASTIN TIME 81.2 SECONDS (25.9-37.0)
[2021-09-30 19:07] LABS: ALBUMIN 2.7 GM/DL (3.2-5.2); ALT/SGPT 19 U/L (12-78); BILIRUBIN,DIRECT 0.3 MG/DL (0.0-0.2); BILIRUBIN,TOTAL 0.9 MG/DL (0.2-1.0); BLOOD UREA NITROGEN 23 MG/DL (7-18); CALCIUM LEVEL 8.4 MG/DL (8.8-10.2); CARBON DIOXIDE LEVEL 30 MEQ/L (21-32); CHLORIDE LEVEL 106 MEQ/L (98-107); CREATININE FOR GFR 0.85 MG/DL (0.70-1.30); GLOMERULAR FILTRATION RATE > 60.0 (>35); GLUCOSE, FASTING 93 MG/DL (70-100); POTASSIUM SERUM 4.4 MEQ/L (3.5-5.1); SODIUM LEVEL 138 MEQ/L (136-145); TOTAL PROTEIN 6.3 GM/DL (6.4-8.2)
[2021-09-30] MEDS ORDERED: PHYTONADIONE 5 MG TAB PO ONE (19:35)
[2021-09-30] MEDS ORDERED: NS 500 ML IV ONE ×2 (19:35→23:15)
[2021-09-30] MEDS: NS 1,000 ML IV SCH (19:58)
[2021-09-30] MEDS ORDERED: WARF-20 PO (21:38)
[2021-09-30] MEDS ORDERED: WARF4TAB51 PO (21:38)
[2021-09-30] MEDS ORDERED: HOME MED LIST COMPLETE! XX SCH (21:40)
[2021-09-30 22:41] LABS: RSV AMPLIFICATION NEGATIVE (NEGATIVE)
[2021-09-30 23:07] LABS: AMORPHOUS SEDIMENT SMALL (NEGATIVE); APPEARANCE, URINE CLOUDY (CLEAR); BACTERIA, URINE AUTO NEGATIVE (NEGATIVE); BILIRUBIN, URINE AUTO NEGATIVE (NEGATIVE); BLOOD, URINE BLOOD 3+ (NEGATIVE); COLOR, URINE AMBER (YELLOW); GLUCOSE, URINE (UA) AUTO NEGATIVE (NEGATIVE); KETONE, URINE AUTO TRACE mg/dL (NEGATIVE); LEUKOCYTE ESTERASE, URINE AUTO TRACE (NEGATIVE); MUCUS, URINE SMALL (NEGATIVE); NITRITE, URINE AUTO NEGATIVE (NEGATIVE); PROTEIN, URINE AUTO 1+ mg/dL (NEGATIVE); RBC, URINE AUTO 136 /HPF (0-3); SPECIFIC GRAVITY URINE AUTO 1.026 (1.002-1.035); SQUAMOUS EPITHELIAL CELL UR AU 0 /HPF (0-6); UROBILINOGEN, URINE AUTO 0.2 mg/dL (0.0-2.0); WBC, URINE AUTO 0 /HPF (0-3)
[2021-09-30] MEDS ORDERED: METOPROLOL TART 25 MG TABLET PO STA (23:11)
[2021-09-30] MEDS ORDERED: DIGOXIN INJ 0.5 MG/2 ML AMP (J1160) IV STA (23:11)
[2021-10-01] MEDS ORDERED: METOPROLOL TART 25 MG TABLET PO STA (00:04)
[2021-10-01] MEDS: ACETAMINOPHEN TAB 650MG DOSE (2X325MG) PO PRN (00:37)
[2021-10-01] MEDS ORDERED: HYDROMORPHONE HCL 0.5 MG/ 0.5 ML SYRINGE (J1170 PER 1) IV PRN (00:40)
[2021-10-01 08:08] LABS: HEMATOCRIT 42.4 % (42.0-52.0); HEMOGLOBIN 13.9 g/dl (13.5-17.5); MEAN CORPUSCULAR HGB CONC 32.8 g/dl (32.0-36.5); MEAN CORPUSCULAR VOLUME 103.7 fl (80.0-96.0); PLATELET COUNT, AUTOMATED 330 10^3/uL (150-450); RED BLOOD COUNT 4.09 10^6/uL (4.30-6.10); WHITE BLOOD COUNT 10.1 10^3/uL (4.0-10.0)
[2021-10-01 08:21] LABS: INR 2.56; PROTHROMBIN TIME 27.9 SECONDS (12.7-14.5)
[2021-10-01 08:30] LABS: BLOOD UREA NITROGEN 20 MG/DL (7-18); CALCIUM LEVEL 8.1 MG/DL (8.8-10.2); CARBON DIOXIDE LEVEL 24 MEQ/L (21-32); CHLORIDE LEVEL 109 MEQ/L (98-107); GLOMERULAR FILTRATION RATE > 60.0 (>35); GLUCOSE, FASTING 81 MG/DL (70-100); POTASSIUM SERUM 4.4 MEQ/L (3.5-5.1); SODIUM LEVEL 140 MEQ/L (136-145)
[2021-10-01] MEDS: NS 1,000 ML IV SCH ×2 (08:41→21:28)
[2021-10-01] MEDS ORDERED: METOPROLOL TART 25 MG TABLET PO SCH (09:00)
[2021-10-01 14:43] VITALS: BP 154/91
[2021-10-01] MEDS ORDERED: PERCOCET 5MG/325MG TAB PO PRN (16:10)
[2021-10-01] MEDS ORDERED: traMADol 50 MG TAB PO PRN (16:10)
[2021-10-01] MEDS: METOPROLOL TART 25 MG TABLET PO SCH ×2 (16:19→20:04)
[2021-10-01] MEDS: WARFARIN SOD 2MG TAB PO SCH (17:49)
[2021-10-01] MEDS: NYSTATIN 100,000 UNITS/GM TOPICAL PWD 15 GM TOP SCH (20:03)
[2021-10-01 22:00] VITALS: BP 143/93
[2021-10-02 06:00] VITALS: BP 152/95
[2021-10-02 06:25] LABS: HEMATOCRIT 44.4 % (42.0-52.0); HEMOGLOBIN 14.5 g/dl (13.5-17.5); MEAN CORPUSCULAR HEMOGLOBIN 33.5 pg (27.0-33.0); MEAN CORPUSCULAR HGB CONC 32.7 g/dl (32.0-36.5); MEAN CORPUSCULAR VOLUME 102.5 fl (80.0-96.0); PLATELET COUNT, AUTOMATED 391 10^3/uL (150-450); RED BLOOD COUNT 4.33 10^6/uL (4.30-6.10); WHITE BLOOD COUNT 11.2 10^3/uL (4.0-10.0)
[2021-10-02 06:37] LABS: INR 1.59; PROTHROMBIN TIME 19.4 SECONDS (12.7-14.5)
[2021-10-02 06:52] LABS: BLOOD UREA NITROGEN 17 MG/DL (7-18); CALCIUM LEVEL 8.6 MG/DL (8.8-10.2); CARBON DIOXIDE LEVEL 29 MEQ/L (21-32); CHLORIDE LEVEL 107 MEQ/L (98-107); GLOMERULAR FILTRATION RATE > 60.0 (>35); GLUCOSE, FASTING 85 MG/DL (70-100); POTASSIUM SERUM 4.5 MEQ/L (3.5-5.1); SODIUM LEVEL 138 MEQ/L (136-145)
[2021-10-02] MEDS: NYSTATIN 100,000 UNITS/GM TOPICAL PWD 15 GM TOP SCH ×2 (08:49→21:44)
[2021-10-02] MEDS: METOPROLOL TART 25 MG TABLET PO SCH ×3 (08:49→21:48)
[2021-10-02] MEDS: NS 1,000 ML IV SCH ×2 (10:42→22:19)
[2021-10-02 14:00] VITALS: BP 144/89
[2021-10-02] MEDS: WARFARIN SOD 2MG TAB PO SCH (17:16)
[2021-10-02 19:51] VITALS: BP_SYST 146; BP_SYST 156; BP_DIAS 92; BP_DIAS 96
[2021-10-02] MEDS ORDERED: PINK BISMUTH SUSP 524MG/30ML ORAL SYRINGE PO PRN (21:40)
[2021-10-03 05:45] VITALS: BP 154/78
[2021-10-03 06:13] LABS: HEMATOCRIT 42.4 % (42.0-52.0); HEMOGLOBIN 14.2 g/dl (13.5-17.5); MEAN CORPUSCULAR HEMOGLOBIN 34.2 pg (27.0-33.0); MEAN CORPUSCULAR HGB CONC 33.5 g/dl (32.0-36.5); MEAN CORPUSCULAR VOLUME 102.2 fl (80.0-96.0); PLATELET COUNT, AUTOMATED 399 10^3/uL (150-450); RED BLOOD COUNT 4.15 10^6/uL (4.30-6.10); WHITE BLOOD COUNT 15.2 10^3/uL (4.0-10.0)
[2021-10-03 06:24] LABS: INR 1.51; PROTHROMBIN TIME 18.6 SECONDS (12.7-14.5)
[2021-10-03 06:41] LABS: BLOOD UREA NITROGEN 14 MG/DL (7-18); CALCIUM LEVEL 8.3 MG/DL (8.8-10.2); CARBON DIOXIDE LEVEL 27 MEQ/L (21-32); CHLORIDE LEVEL 106 MEQ/L (98-107); CREATININE FOR GFR 0.85 MG/DL (0.70-1.30); GLOMERULAR FILTRATION RATE > 60.0 (>35); GLUCOSE, FASTING 98 MG/DL (70-100); POTASSIUM SERUM 4.8 MEQ/L (3.5-5.1); SODIUM LEVEL 139 MEQ/L (136-145)
[2021-10-03] MEDS: NYSTATIN 100,000 UNITS/GM TOPICAL PWD 15 GM TOP SCH ×2 (09:07→20:31)
[2021-10-03] MEDS: METOPROLOL TART 25 MG TABLET PO SCH ×3 (09:11→20:31)
[2021-10-03] MEDS ORDERED: BISACODYL 10 MG SUPP PR PRN (10:50)
[2021-10-03] MEDS: NS 1,000 ML IV SCH (11:37)
[2021-10-03] MEDS: MIRALAX *UNIT DOSE* 17GM PACKET PO SCH ×2 (11:40→20:31)
[2021-10-03] MEDS: SENOKOT S TAB PO SCH ×2 (11:41→20:31)
[2021-10-03 14:00] VITALS: BP 138/84
[2021-10-03] MEDS: WARFARIN SOD 3MG TAB PO SCH (16:55)
[2021-10-03] MEDS: ACETAMINOPHEN TAB 650MG DOSE (2X325MG) PO PRN (20:32)
[2021-10-03 22:00] VITALS: BP 147/80
[2021-10-04] MEDS: NS 1,000 ML IV SCH ×2 (01:42→16:21)
[2021-10-04 06:27] LABS: HEMATOCRIT 40.8 % (42.0-52.0); HEMOGLOBIN 13.9 g/dl (13.5-17.5); MEAN CORPUSCULAR HEMOGLOBIN 34.8 pg (27.0-33.0); MEAN CORPUSCULAR HGB CONC 34.1 g/dl (32.0-36.5); PLATELET COUNT, AUTOMATED 362 10^3/uL (150-450)
[2021-10-04 06:29] VITALS: BP 139/90
[2021-10-04 06:45] LABS: INR 1.65; PROTHROMBIN TIME 19.9 SECONDS (12.7-14.5)
[2021-10-04 06:49] LABS: BLOOD UREA NITROGEN 13 MG/DL (7-18); CALCIUM LEVEL 8.2 MG/DL (8.8-10.2); CARBON DIOXIDE LEVEL 24 MEQ/L (21-32); CHLORIDE LEVEL 106 MEQ/L (98-107); CREATININE FOR GFR 0.64 MG/DL (0.70-1.30); GLOMERULAR FILTRATION RATE > 60.0 (>35); GLUCOSE, FASTING 88 MG/DL (70-100); POTASSIUM SERUM 3.7 MEQ/L (3.5-5.1); SODIUM LEVEL 136 MEQ/L (136-145)
[2021-10-04] MEDS ORDERED: PIPERACILLIN/TAZOBACTAM SOD 3.375 GM in D5W MINI-BAG PLUS 50 ML IV SCH (08:10)
[2021-10-04] MEDS: MIRALAX *UNIT DOSE* 17GM PACKET PO SCH ×2 (08:31→20:13)
[2021-10-04] MEDS: PIPERACILLIN/TAZOBACTAM SOD 4.5 GM in D5W MINI-BAG PLUS 50 ML IV SCH ×3 (08:47→20:13)
[2021-10-04] MEDS: SENOKOT S TAB PO SCH ×2 (08:47→20:15)
[2021-10-04] MEDS: NYSTATIN 100,000 UNITS/GM TOPICAL PWD 15 GM TOP SCH ×2 (08:48→20:15)
[2021-10-04] MEDS: METOPROLOL TART 25 MG TABLET PO SCH ×3 (08:49→20:15)
[2021-10-04 14:00] VITALS: BP 118/70
[2021-10-04] MEDS: WARFARIN SOD 3MG TAB PO SCH (16:21)
[2021-10-04] MEDS: ACETAMINOPHEN TAB 650MG DOSE (2X325MG) PO PRN (20:14)
[2021-10-04 22:00] VITALS: BP 139/81
[2021-10-05] MEDS: PIPERACILLIN/TAZOBACTAM SOD 4.5 GM in D5W MINI-BAG PLUS 50 ML IV SCH ×4 (01:18→20:54)
[2021-10-05 06:00] VITALS: BP 148/92
[2021-10-05] MEDS: NS 1,000 ML IV SCH ×2 (06:02→17:23)
[2021-10-05 06:10] LABS: HEMATOCRIT 40.7 % (42.0-52.0); HEMOGLOBIN 13.6 g/dl (13.5-17.5); MEAN CORPUSCULAR HEMOGLOBIN 33.5 pg (27.0-33.0); MEAN CORPUSCULAR HGB CONC 33.4 g/dl (32.0-36.5); MEAN CORPUSCULAR VOLUME 100.2 fl (80.0-96.0); PLATELET COUNT, AUTOMATED 333 10^3/uL (150-450); RED BLOOD COUNT 4.06 10^6/uL (4.30-6.10)
[2021-10-05 06:18] LABS: INR 2.26; PROTHROMBIN TIME 25.3 SECONDS (12.7-14.5)
[2021-10-05 06:33] LABS: BLOOD UREA NITROGEN 13 MG/DL (7-18); CARBON DIOXIDE LEVEL 27 MEQ/L (21-32); CHLORIDE LEVEL 106 MEQ/L (98-107); CREATININE FOR GFR 0.77 MG/DL (0.70-1.30); GLOMERULAR FILTRATION RATE > 60.0 (>35); GLUCOSE, FASTING 87 MG/DL (70-100); SODIUM LEVEL 137 MEQ/L (136-145)
[2021-10-05] MEDS: MIRALAX *UNIT DOSE* 17GM PACKET PO SCH ×2 (09:34→20:55)
[2021-10-05] MEDS: SENOKOT S TAB PO SCH ×2 (09:35→20:55)
[2021-10-05] MEDS: NYSTATIN 100,000 UNITS/GM TOPICAL PWD 15 GM TOP SCH ×2 (09:35→20:55)
[2021-10-05] MEDS: METOPROLOL TART 25 MG TABLET PO SCH ×3 (09:36→20:55)
[2021-10-05 14:00] VITALS: BP 140/82
[2021-10-05] MEDS ORDERED: WARFARIN SOD 1MG TAB PO SCH (17:00)
[2021-10-05] MEDS: WARFARIN SOD 3MG TAB PO SCH (17:22)
[2021-10-05] MEDS: ACETAMINOPHEN TAB 650MG DOSE (2X325MG) PO PRN (20:56)
[2021-10-05 22:00] VITALS: BP_SYST 133; BP_SYST 139; BP_DIAS 85; BP_DIAS 88
[2021-10-06] MEDS: PIPERACILLIN/TAZOBACTAM SOD 4.5 GM in D5W MINI-BAG PLUS 50 ML IV SCH ×2 (01:25→08:57)
[2021-10-06 06:00] VITALS: BP 148/99
[2021-10-06 06:20] LABS: HEMATOCRIT 40.5 % (42.0-52.0); HEMOGLOBIN 13.5 g/dl (13.5-17.5); MEAN CORPUSCULAR HEMOGLOBIN 33.8 pg (27.0-33.0); MEAN CORPUSCULAR HGB CONC 33.3 g/dl (32.0-36.5); MEAN CORPUSCULAR VOLUME 101.3 fl (80.0-96.0); PLATELET COUNT, AUTOMATED 367 10^3/uL (150-450); WHITE BLOOD COUNT 14.2 10^3/uL (4.0-10.0)
[2021-10-06 06:31] LABS: INR 2.67; PROTHROMBIN TIME 28.8 SECONDS (12.7-14.5)
[2021-10-06 06:53] VITALS: BP 140/84
[2021-10-06 07:01] LABS: BLOOD UREA NITROGEN 14 MG/DL (7-18); CALCIUM LEVEL 8.1 MG/DL (8.8-10.2); CARBON DIOXIDE LEVEL 27 MEQ/L (21-32); CHLORIDE LEVEL 106 MEQ/L (98-107); CREATININE FOR GFR 0.73 MG/DL (0.70-1.30); GLOMERULAR FILTRATION RATE > 60.0 (>35); GLUCOSE, FASTING 84 MG/DL (70-100); POTASSIUM SERUM 3.8 MEQ/L (3.5-5.1); SODIUM LEVEL 138 MEQ/L (136-145)
[2021-10-06] MEDS: MIRALAX *UNIT DOSE* 17GM PACKET PO SCH ×2 (08:48→21:00)
[2021-10-06] MEDS: SENOKOT S TAB PO SCH ×3 (08:57→21:23)
[2021-10-06] MEDS: NYSTATIN 100,000 UNITS/GM TOPICAL PWD 15 GM TOP SCH ×2 (08:58→21:00)
[2021-10-06] MEDS: METOPROLOL TART 25 MG TABLET PO SCH ×3 (08:59→21:26)
[2021-10-06 11:11] LABS: ERYTHROCYTE SEDIMENTATION RATE 47 mm/hr (0-20)
[2021-10-06] MEDS: AUGMENTIN 875 MG TAB PO SCH ×2 (11:52→21:23)
[2021-10-06] MEDS ORDERED: WARFARIN SOD 1MG TAB PO SCH (17:00)
[2021-10-06] MEDS ORDERED: WARFARIN SOD 2MG TAB PO SCH (17:00)
[2021-10-07 06:00] VITALS: BP 147/95
[2021-10-07 06:24] LABS: HEMATOCRIT 40.4 % (42.0-52.0); HEMOGLOBIN 13.4 g/dl (13.5-17.5); MEAN CORPUSCULAR HEMOGLOBIN 33.5 pg (27.0-33.0); MEAN CORPUSCULAR HGB CONC 33.2 g/dl (32.0-36.5); PLATELET COUNT, AUTOMATED 420 10^3/uL (150-450); WHITE BLOOD COUNT 14.5 10^3/uL (4.0-10.0)
[2021-10-07 06:32] LABS: INR 3.06; PROTHROMBIN TIME 31.9 SECONDS (12.7-14.5)
[2021-10-07 06:41] LABS: BLOOD UREA NITROGEN 13 MG/DL (7-18); CALCIUM LEVEL 8.2 MG/DL (8.8-10.2); CARBON DIOXIDE LEVEL 25 MEQ/L (21-32); CHLORIDE LEVEL 105 MEQ/L (98-107); CREATININE FOR GFR 0.73 MG/DL (0.70-1.30); GLOMERULAR FILTRATION RATE > 60.0 (>35); GLUCOSE, FASTING 99 MG/DL (70-100); POTASSIUM SERUM 3.9 MEQ/L (3.5-5.1); SODIUM LEVEL 138 MEQ/L (136-145)
[2021-10-07] MEDS: MIRALAX *UNIT DOSE* 17GM PACKET PO SCH (09:00)
[2021-10-07] MEDS: SENOKOT S TAB PO SCH (09:00)
[2021-10-07] MEDS: AUGMENTIN 875 MG TAB PO SCH (09:01)
[2021-10-07] MEDS: NYSTATIN 100,000 UNITS/GM TOPICAL PWD 15 GM TOP SCH (09:01)
[2021-10-07 09:03] VITALS: BP 140/89
[2021-10-07] MEDS: METOPROLOL TART 25 MG TABLET PO SCH (09:03)
[2021-10-07] MEDS ORDERED: AMOX875T2 PO (10:35)
[2021-10-07] MEDS ORDERED: METO1TAB87 PO (10:35)
[2021-10-07] MEDS ORDERED: WARF4TAB51 PO (10:35)
== END 2021-10-07 12:11 | disposition home health service (06) | DRG 813 ==
LOC: M ED 15:57 → M ED INP 23:10 → ENRESERV 10-01 11:52 → M MSPAV 10-01 14:25
PROVIDERS: ADMIT Internal Medicine; ATTEND Internal Medicine
DX: D68.32 Hemorrhagic disorder due to extrinsic circulating anticoagulants (principal); J69.0 Pneumonitis due to inhalation of food and vomit; R31.9 Hematuria, unspecified; I48.91 Unspecified atrial fibrillation; M16.11 Unilateral primary osteoarthritis, right hip; R13.10 Dysphagia, unspecified; Z79.899 Other long term (current) drug therapy; Z88.8 Allergy status to other drugs, medicaments and biological substances; Z79.01 Long term (current) use of anticoagulants; Z66 Do not resuscitate

== ENCOUNTER 2022-03-09 17:06 | Inpatient (IN) | payer MEDICARE ==
[~2022-03-09] VITALS: Ht 170.2 cm; Wt 74.2 kg
[~2022-03-09 17:06] MED LIST changes: +AMOX875T2 PO; +METO1TAB87 PO; +WARF-20; +WARF-20 PO; +WARF4TAB51; +WARF4TAB51 PO
[2022-03-09] MEDS ORDERED: WARF-58 PO (17:21)
[2022-03-09] MEDS ORDERED: ISOVUE-370 76% 100ML VIAL As Ordered ONE (17:53)
[2022-03-09 18:11] LABS: INR 2.49; PROTHROMBIN TIME 27.3 SECONDS (12.5-14.5)
[2022-03-09 18:12] LABS: PARTIAL THROMBOPLASTIN TIME 46.8 SECONDS (24.8-34.2)
[2022-03-09 18:14] LABS: BASO # 0.1 10^3/uL (0.0-0.2); EOS # 0.1 10^3/uL (0.0-0.5); EOS % 0.6 % (0.0-3.0); HEMOGLOBIN 15.8 g/dl (13.5-17.5); LYMPH # 1.9 10^3/uL (1.5-5.0); LYMPH % 15.3 % (24.0-44.0); MEAN CORPUSCULAR HEMOGLOBIN 33.4 pg (27.0-33.0); MEAN CORPUSCULAR HGB CONC 32.9 g/dl (32.0-36.5); MEAN CORPUSCULAR VOLUME 101.5 fl (80.0-96.0); MONO # 1.4 10^3/uL (0.0-0.8); MONO % 11.3 % (2.0-8.0); NEUTROPHILS # 8.9 10^3/uL (1.5-8.5); NEUTROPHILS % 71.2 % (36.0-66.0); PLATELET COUNT, AUTOMATED 347 10^3/uL (150-450); RED BLOOD COUNT 4.73 10^6/uL (4.30-6.10); WHITE BLOOD COUNT 12.4 10^3/uL (4.0-10.0)
[2022-03-09] MEDS ORDERED: METO1TAB87 PO (19:00)
[2022-03-09] MEDS ORDERED: HOME MED LIST COMPLETE! XX SCH (19:05)
[2022-03-09] MEDS ORDERED: tiZANidine 4 MG TAB PO ONE (20:05)
[2022-03-09] MEDS ORDERED: ASPIRIN 81MG CHEW TABLET PO ONE (20:05)
[2022-03-09] MEDS ORDERED: PANTOPRAZOLE 40MG VIAL IV ONE (20:10)
[2022-03-09] MEDS ORDERED: ACETAMINOPHEN TAB 650MG DOSE (2X325MG) PO PRN (20:25)
[2022-03-09 20:41] LABS: RSV AMPLIFICATION NEGATIVE (NEGATIVE)
[2022-03-09] MEDS: PRAVASTATIN 20 MG TAB PO SCH (20:54)
[2022-03-09] MEDS: DICLOFENAC EPOLAMINE 1.3% PATCH TOP SCH (21:55)
[2022-03-09 22:25] LABS: MB/CK RELATIVE INDEX 1.63 (< OR =4)
[2022-03-09 22:28] LABS: THYROID STIMULATING HORMONE 3.354 uIU/ML (0.55-4.78)
[2022-03-09 22:45] LABS: HEMOGLOBIN A1c 5.4 % (4.0-6.0)
[2022-03-09 23:00] VITALS: BP 150/75
[2022-03-09] MEDS ORDERED: ASPIRIN 300 MG SUPP PR ONE (23:00)
[2022-03-10] VITALS: BP_SYST 112; BP_SYST 135; BP_DIAS 62; BP_DIAS 84
[2022-03-10] MEDS: MORPHINE 2 MG/ML 1ML VIAL IV PRN ×2 (01:51→14:02)
[2022-03-10 04:00] VITALS: BP 139/80
[2022-03-10 08:00] VITALS: BP 129/82
[2022-03-10 08:57] LABS: BASO # 0.1 10^3/uL (0.0-0.2); BASO % 1.2 % (0.0-1.0); EOS # 0.1 10^3/uL (0.0-0.5); HEMATOCRIT 44.2 % (42.0-52.0); HEMOGLOBIN 14.4 g/dl (13.5-17.5); LYMPH % 17.6 % (24.0-44.0); MEAN CORPUSCULAR HEMOGLOBIN 33.2 pg (27.0-33.0); MEAN CORPUSCULAR HGB CONC 32.6 g/dl (32.0-36.5); MEAN CORPUSCULAR VOLUME 101.8 fl (80.0-96.0); MONO % 13.8 % (2.0-8.0); NEUTROPHILS # 7.4 10^3/uL (1.5-8.5); NEUTROPHILS % 65.8 % (36.0-66.0); PLATELET COUNT, AUTOMATED 318 10^3/uL (150-450); RED BLOOD COUNT 4.34 10^6/uL (4.30-6.10); WHITE BLOOD COUNT 11.2 10^3/uL (4.0-10.0)
[2022-03-10 09:04] LABS: MAGNESIUM LEVEL 1.8 MG/DL (1.8-2.4)
[2022-03-10 09:06] LABS: ALBUMIN 2.8 G/DL (3.2-5.2); ALKALINE PHOSPHATASE 113 U/L (46-116); ALT/SGPT 24 U/L (7.0-40); AST/SGOT 30 U/L (<34); BILIRUBIN,TOTAL 1.1 MG/DL (0.3-1.2); BLOOD UREA NITROGEN 20 MG/DL (9-23); CALCIUM LEVEL 8.9 MG/DL (8.3-10.6); CARBON DIOXIDE LEVEL 24 MMOL/L (20-31); CHLORIDE LEVEL 102 MMOL/L (98-107); GLOMERULAR FILTRATION RATE > 60.0 (>35); GLUCOSE, FASTING 86 MG/DL (74-106); POTASSIUM SERUM 4.5 MMOL/L (3.5-5.1); SODIUM LEVEL 138 MMOL/L (136-145); TOTAL PROTEIN 6.4 G/DL (5.7-8.2)
[2022-03-10 09:12] LABS: INR 2.45
[2022-03-10] MEDS: DICLOFENAC EPOLAMINE 1.3% PATCH TOP SCH ×2 (09:29→21:00)
[2022-03-10 10:00] LABS: MONO # 1.6 10^3/uL (0.0-0.8)
[2022-03-10] MEDS ORDERED: VARIBAR PUDDING 40% w/v 230ML TUBE As Ordered ONE (11:41)
[2022-03-10] MEDS ORDERED: BARIUM SULFATE 700 MG TABLET (E-Z-DISK) As Ordered ONE (11:41)
[2022-03-10] MEDS ORDERED: E-Z-PAQUE 96% w/w SUSP 176GM BTL As Ordered ONE (11:41)
[2022-03-10] MEDS ORDERED: VARIBAR NECTAR 40% w/v 240ML SUSP BTL As Ordered ONE (11:41)
[2022-03-10 12:51] VITALS: BP 125/84
[2022-03-10] MEDS: D5W/0.9% SODIUM CHLORIDE 1,000 ML IV SCH (12:58)
[2022-03-10] MEDS: PANTOPRAZOLE 40MG TAB (PROTONIX) PO SCH (12:58)
[2022-03-10 16:00] VITALS: BP 154/91
[2022-03-10] MEDS ORDERED: PILL CUTTER 1 EACH XX PRN (19:15)
[2022-03-10] MEDS ORDERED: WARFARIN SOD 3MG TAB PO SCH (20:00)
[2022-03-10 20:19] VITALS: BP 144/77
[2022-03-10] MEDS: ACETAMINOPHEN 500 MG TAB PO SCH (20:31)
[2022-03-10] MEDS: PRAVASTATIN 20 MG TAB PO SCH (20:32)
[2022-03-10] MEDS: oxyCODONE 5MG TAB PO SCH (20:32)
[2022-03-10] MEDS: GABAPENTIN 100 MG CAP PO SCH (20:32)
[2022-03-10] MEDS ORDERED: ASPIRIN 81MG CHEW TABLET PO SCH (21:00)
[2022-03-11 00:32] VITALS: BP 106/74
[2022-03-11] MEDS: D5W/0.9% SODIUM CHLORIDE 1,000 ML IV SCH (00:45)
[2022-03-11 04:44] VITALS: BP 129/63
[2022-03-11 05:27] LABS: BASO # 0.1 10^3/uL (0.0-0.2); BASO % 0.9 % (0.0-1.0); EOS # 0.1 10^3/uL (0.0-0.5); EOS % 1.1 % (0.0-3.0); HEMATOCRIT 43.2 % (42.0-52.0); HEMOGLOBIN 14.2 g/dl (13.5-17.5); LYMPH # 1.8 10^3/uL (1.5-5.0); LYMPH % 13.9 % (24.0-44.0); MEAN CORPUSCULAR HEMOGLOBIN 33.3 pg (27.0-33.0); MEAN CORPUSCULAR HGB CONC 32.9 g/dl (32.0-36.5); MEAN CORPUSCULAR VOLUME 101.4 fl (80.0-96.0); MONO % 17.7 % (2.0-8.0); NEUTROPHILS # 8.5 10^3/uL (1.5-8.5); NEUTROPHILS % 65.9 % (36.0-66.0); PLATELET COUNT, AUTOMATED 284 10^3/uL (150-450); RED BLOOD COUNT 4.26 10^6/uL (4.30-6.10)
[2022-03-11 05:38] LABS: INR 2.69
[2022-03-11 05:43] LABS: MONO # 2.3 10^3/uL (0.0-0.8)
[2022-03-11 05:48] LABS: BLOOD UREA NITROGEN 17 MG/DL (9-23); CARBON DIOXIDE LEVEL 26 MMOL/L (20-31); CHLORIDE LEVEL 106 MMOL/L (98-107); CHOLESTEROL LEVEL 147 MG/DL (<200); CHOLESTEROL RISK RATIO 4.36 (<5); CREATININE FOR GFR 0.79 MG/DL (0.70-1.30); GLOMERULAR FILTRATION RATE > 60.0 (>35); GLUCOSE, FASTING 109 MG/DL (74-106); HDL CHOLESTEROL 33.7 MG/DL (>40); LDL CHOLESTEROL 86.3 MG/DL (<100); NON-HDL-C 113 MG/DL; POTASSIUM SERUM 4.1 MMOL/L (3.5-5.1); SODIUM LEVEL 137 MMOL/L (136-145); TRIGLYCERIDES LEVEL 135 MG/DL (<150)
[2022-03-11 08:00] VITALS: BP 116/75
[2022-03-11] MEDS: DICLOFENAC EPOLAMINE 1.3% PATCH TOP SCH ×2 (08:12→21:09)
[2022-03-11] MEDS: ACETAMINOPHEN 500 MG TAB PO SCH ×2 (08:13→21:08)
[2022-03-11] MEDS: GABAPENTIN 100 MG CAP PO SCH ×2 (08:13→21:08)
[2022-03-11] MEDS: PANTOPRAZOLE 40MG TAB (PROTONIX) PO SCH (08:15)
[2022-03-11 12:00] VITALS: BP 123/78
[2022-03-11] MEDS ORDERED: BACLOFEN 10 MG TAB PO SCH (14:00)
[2022-03-11 16:00] VITALS: BP 137/81
[2022-03-11 20:00] VITALS: BP 130/73
[2022-03-11] MEDS ORDERED: APIXABAN 5 MG TAB (ELIQUIS) PO SCH (21:00)
[2022-03-11] MEDS: oxyCODONE 5MG TAB PO SCH (21:07)
[2022-03-11] MEDS: BACLOFEN 5MG PER 1/2 TABLET PO SCH (21:08)
[2022-03-11] MEDS: PRAVASTATIN 20 MG TAB PO SCH (21:09)
[2022-03-12] VITALS: BP 135/63
[2022-03-12 04:00] VITALS: BP 113/75
[2022-03-12 05:38] LABS: BASO # 0.1 10^3/uL (0.0-0.2); BASO % 0.9 % (0.0-1.0); EOS # 0.1 10^3/uL (0.0-0.5); EOS % 0.6 % (0.0-3.0); HEMATOCRIT 44.6 % (42.0-52.0); HEMOGLOBIN 14.6 g/dl (13.5-17.5); LYMPH # 1.5 10^3/uL (1.5-5.0); LYMPH % 10.3 % (24.0-44.0); MEAN CORPUSCULAR HEMOGLOBIN 33.3 pg (27.0-33.0); MEAN CORPUSCULAR HGB CONC 32.7 g/dl (32.0-36.5); MEAN CORPUSCULAR VOLUME 101.8 fl (80.0-96.0); MONO % 17.8 % (2.0-8.0); NEUTROPHILS # 10.2 10^3/uL (1.5-8.5); NEUTROPHILS % 69.9 % (36.0-66.0); PLATELET COUNT, AUTOMATED 274 10^3/uL (150-450); RED BLOOD COUNT 4.38 10^6/uL (4.30-6.10); WHITE BLOOD COUNT 14.6 10^3/uL (4.0-10.0)
[2022-03-12 05:45] LABS: INR 2.63; PROTHROMBIN TIME 28.5 SECONDS (12.5-14.5)
[2022-03-12 05:49] LABS: MONO # 2.6 10^3/uL (0.0-0.8)
[2022-03-12] MEDS: GABAPENTIN 100 MG CAP PO SCH ×3 (05:49→20:51)
[2022-03-12] MEDS: BACLOFEN 5MG PER 1/2 TABLET PO SCH ×3 (05:49→17:11)
[2022-03-12 06:09] LABS: BLOOD UREA NITROGEN 14 MG/DL (9-23); CALCIUM LEVEL 8.1 MG/DL (8.3-10.6); CARBON DIOXIDE LEVEL 22 MMOL/L (20-31); CHLORIDE LEVEL 106 MMOL/L (98-107); CREATININE FOR GFR 0.73 MG/DL (0.70-1.30); GLOMERULAR FILTRATION RATE > 60.0 (>35); GLUCOSE, FASTING 93 MG/DL (74-106); POTASSIUM SERUM 4.2 MMOL/L (3.5-5.1); SODIUM LEVEL 139 MMOL/L (136-145)
[2022-03-12 08:00] VITALS: BP 106/79
[2022-03-12] MEDS: PANTOPRAZOLE 40MG TAB (PROTONIX) PO SCH (09:03)
[2022-03-12] MEDS: DICLOFENAC EPOLAMINE 1.3% PATCH TOP SCH ×2 (09:04→20:51)
[2022-03-12] MEDS: ACETAMINOPHEN 500 MG TAB PO SCH ×2 (09:04→20:49)
[2022-03-12] MEDS ORDERED: diazePAM 10MG/2ML SYRINGE IV ONE (10:50)
[2022-03-12 12:00] VITALS: BP 109/73
[2022-03-12 16:00] VITALS: BP 127/73
[2022-03-12 19:41] VITALS: BP 147/80
[2022-03-12] MEDS: oxyCODONE 5MG TAB PO SCH (20:50)
[2022-03-12] MEDS: diazePAM 2 MG TAB PO SCH (20:50)
[2022-03-12] MEDS: METOPROLOL TART 25 MG TABLET PO SCH (20:51)
[2022-03-12] MEDS: PRAVASTATIN 20 MG TAB PO SCH (20:51)
[2022-03-13 04:00] VITALS: BP 110/68
[2022-03-13] MEDS: GABAPENTIN 100 MG CAP PO SCH ×3 (06:07→23:14)
[2022-03-13 06:35] LABS: BASO # 0.1 10^3/uL (0.0-0.2); BASO % 0.8 % (0.0-1.0); EOS # 0.1 10^3/uL (0.0-0.5); EOS % 0.6 % (0.0-3.0); HEMOGLOBIN 14.7 g/dl (13.5-17.5); LYMPH # 1.9 10^3/uL (1.5-5.0); LYMPH % 11.5 % (24.0-44.0); MEAN CORPUSCULAR HEMOGLOBIN 33.6 pg (27.0-33.0); MEAN CORPUSCULAR HGB CONC 32.7 g/dl (32.0-36.5); MONO % 18.1 % (2.0-8.0); NEUTROPHILS # 11.3 10^3/uL (1.5-8.5); NEUTROPHILS % 68.5 % (36.0-66.0); PLATELET COUNT, AUTOMATED 278 10^3/uL (150-450); RED BLOOD COUNT 4.37 10^6/uL (4.30-6.10); WHITE BLOOD COUNT 16.4 10^3/uL (4.0-10.0)
[2022-03-13 06:46] LABS: INR 2.47; PROTHROMBIN TIME 27.2 SECONDS (12.5-14.5)
[2022-03-13 07:02] LABS: BLOOD UREA NITROGEN 16 MG/DL (9-23); CALCIUM LEVEL 8.7 MG/DL (8.3-10.6); CARBON DIOXIDE LEVEL 29 MMOL/L (20-31); CHLORIDE LEVEL 103 MMOL/L (98-107); CREATININE FOR GFR 0.92 MG/DL (0.70-1.30); GLOMERULAR FILTRATION RATE > 60.0 (>35); GLUCOSE, FASTING 85 MG/DL (74-106); POTASSIUM SERUM 4.2 MMOL/L (3.5-5.1); SODIUM LEVEL 140 MMOL/L (136-145)
[2022-03-13 08:00] VITALS: BP 119/75
[2022-03-13] MEDS: METOPROLOL TART 25 MG TABLET PO SCH ×3 (08:50→21:00)
[2022-03-13] MEDS: diazePAM 2 MG TAB PO SCH ×2 (08:50→23:16)
[2022-03-13] MEDS: ACETAMINOPHEN 500 MG TAB PO SCH ×2 (08:51→23:14)
[2022-03-13] MEDS: PANTOPRAZOLE 40MG TAB (PROTONIX) PO SCH (08:51)
[2022-03-13] MEDS: DICLOFENAC EPOLAMINE 1.3% PATCH TOP SCH ×2 (08:51→23:14)
[2022-03-13] MEDS ORDERED: APIXABAN 5 MG TAB (ELIQUIS) PO SCH (09:00)
[2022-03-13 16:00] VITALS: BP 127/78
[2022-03-13 20:31] VITALS: BP 116/72
[2022-03-13] MEDS: PRAVASTATIN 20 MG TAB PO SCH (23:13)
[2022-03-14] MEDS ORDERED: oxyCODONE 5MG TAB PO ONE (02:00)
[2022-03-14 04:50] VITALS: BP 117/75
[2022-03-14] MEDS: GABAPENTIN 100 MG CAP PO SCH ×3 (05:29→21:55)
[2022-03-14 06:01] LABS: BASO # 0.2 10^3/uL (0.0-0.2); BASO % 0.9 % (0.0-1.0); EOS # 0.1 10^3/uL (0.0-0.5); EOS % 0.8 % (0.0-3.0); HEMATOCRIT 46.6 % (42.0-52.0); HEMOGLOBIN 15.1 g/dl (13.5-17.5); LYMPH # 1.7 10^3/uL (1.5-5.0); LYMPH % 9.8 % (24.0-44.0); MEAN CORPUSCULAR HEMOGLOBIN 33.5 pg (27.0-33.0); MEAN CORPUSCULAR HGB CONC 32.4 g/dl (32.0-36.5); MEAN CORPUSCULAR VOLUME 103.3 fl (80.0-96.0); MONO % 15.1 % (2.0-8.0); NEUTROPHILS # 12.6 10^3/uL (1.5-8.5); NEUTROPHILS % 72.7 % (36.0-66.0); PLATELET COUNT, AUTOMATED 343 10^3/uL (150-450); RED BLOOD COUNT 4.51 10^6/uL (4.30-6.10); WHITE BLOOD COUNT 17.4 10^3/uL (4.0-10.0)
[2022-03-14 06:06] LABS: MONO # 2.6 10^3/uL (0.0-0.8)
[2022-03-14 06:09] LABS: INR 2.39; PROTHROMBIN TIME 26.5 SECONDS (12.5-14.5)
[2022-03-14 06:35] LABS: BLOOD UREA NITROGEN 35 MG/DL (9-23); CALCIUM LEVEL 8.4 MG/DL (8.3-10.6); CARBON DIOXIDE LEVEL 26 MMOL/L (20-31); CHLORIDE LEVEL 105 MMOL/L (98-107); CREATININE FOR GFR 0.85 MG/DL (0.70-1.30); GLOMERULAR FILTRATION RATE > 60.0 (>35); GLUCOSE, FASTING 101 MG/DL (74-106); POTASSIUM SERUM 4.3 MMOL/L (3.5-5.1); SODIUM LEVEL 140 MMOL/L (136-145)
[2022-03-14 07:54] VITALS: BP 106/63
[2022-03-14] MEDS: METOPROLOL TART 25 MG TABLET PO SCH ×3 (07:59→21:57)
[2022-03-14] MEDS: PANTOPRAZOLE 40MG TAB (PROTONIX) PO SCH (09:03)
[2022-03-14] MEDS: diazePAM 2 MG TAB PO SCH ×2 (09:03→21:56)
[2022-03-14] MEDS: ACETAMINOPHEN 500 MG TAB PO SCH ×2 (09:04→21:55)
[2022-03-14] MEDS: DICLOFENAC EPOLAMINE 1.3% PATCH TOP SCH ×2 (09:05→21:58)
[2022-03-14 16:00] VITALS: BP 107/68
[2022-03-14 20:00] VITALS: BP 132/67
[2022-03-14] MEDS: PRAVASTATIN 20 MG TAB PO SCH (21:55)
[2022-03-15 04:00] VITALS: BP 121/57
[2022-03-15 05:23] LABS: BASO # 0.1 10^3/uL (0.0-0.2); BASO % 0.6 % (0.0-1.0); EOS # 0.2 10^3/uL (0.0-0.5); EOS % 1.1 % (0.0-3.0); HEMATOCRIT 47.7 % (42.0-52.0); HEMOGLOBIN 15.2 g/dl (13.5-17.5); LYMPH # 2.3 10^3/uL (1.5-5.0); LYMPH % 10.6 % (24.0-44.0); MEAN CORPUSCULAR HEMOGLOBIN 33.2 pg (27.0-33.0); MEAN CORPUSCULAR HGB CONC 31.9 g/dl (32.0-36.5); MEAN CORPUSCULAR VOLUME 104.1 fl (80.0-96.0); MONO % 10.9 % (2.0-8.0); NEUTROPHILS # 16.2 10^3/uL (1.5-8.5); NEUTROPHILS % 76.1 % (36.0-66.0); PLATELET COUNT, AUTOMATED 354 10^3/uL (150-450); RED BLOOD COUNT 4.58 10^6/uL (4.30-6.10); WHITE BLOOD COUNT 21.3 10^3/uL (4.0-10.0)
[2022-03-15 05:26] LABS: MONO # 2.3 10^3/uL (0.0-0.8)
[2022-03-15 05:32] LABS: INR 2.15; PROTHROMBIN TIME 24.4 SECONDS (12.5-14.5)
[2022-03-15] MEDS: GABAPENTIN 100 MG CAP PO SCH ×3 (05:39→21:03)
[2022-03-15 06:37] LABS: BLOOD UREA NITROGEN 43 MG/DL (9-23); CALCIUM LEVEL 8.6 MG/DL (8.3-10.6); CARBON DIOXIDE LEVEL 26 MMOL/L (20-31); CHLORIDE LEVEL 106 MMOL/L (98-107); CREATININE FOR GFR 0.89 MG/DL (0.70-1.30); GLOMERULAR FILTRATION RATE > 60.0 (>35); GLUCOSE, FASTING 108 MG/DL (74-106); POTASSIUM SERUM 4.1 MMOL/L (3.5-5.1); SODIUM LEVEL 143 MMOL/L (136-145)
[2022-03-15 07:58] VITALS: BP 118/79
[2022-03-15 08:04] VITALS: BP 118/79
[2022-03-15] MEDS: METOPROLOL TART 25 MG TABLET PO SCH ×2 (08:04→15:04)
[2022-03-15] MEDS: PANTOPRAZOLE 40MG TAB (PROTONIX) PO SCH (08:24)
[2022-03-15] MEDS: DICLOFENAC EPOLAMINE 1.3% PATCH TOP SCH ×2 (08:24→21:03)
[2022-03-15] MEDS: ACETAMINOPHEN 500 MG TAB PO SCH ×2 (08:24→21:02)
[2022-03-15] MEDS: diazePAM 2 MG TAB PO SCH ×2 (08:25→21:03)
[2022-03-15] MEDS ORDERED: NS 1,000 ML IV ONE (08:25)
[2022-03-15] MEDS ORDERED: APIXABAN 5 MG TAB (ELIQUIS) PO SCH (09:00)
[2022-03-16] MEDS: GABAPENTIN 100 MG CAP PO SCH ×3 (05:36→22:27)
[2022-03-16] MEDS ORDERED: APIXABAN 5 MG TAB (ELIQUIS) PO SCH (09:00)
[2022-03-16] MEDS: diazePAM 2 MG TAB PO SCH ×2 (09:35→22:27)
[2022-03-16] MEDS: DICLOFENAC EPOLAMINE 1.3% PATCH TOP SCH ×2 (09:35→22:29)
[2022-03-16] MEDS: ACETAMINOPHEN 500 MG TAB PO SCH ×2 (09:35→22:28)
[2022-03-17] MEDS: MORPHINE 10MG/0.5ML ORAL CONCENTRATE SOLUTION U/D SL PRN ×2 (03:50→16:53)
[2022-03-17] MEDS: GABAPENTIN 100 MG CAP PO SCH ×3 (05:10→20:10)
[2022-03-17] MEDS: DICLOFENAC EPOLAMINE 1.3% PATCH TOP SCH ×3 (09:00→20:18)
[2022-03-17] MEDS: ACETAMINOPHEN 500 MG TAB PO SCH ×2 (09:39→20:11)
[2022-03-17] MEDS: diazePAM 2 MG TAB PO SCH ×2 (09:39→20:11)
[2022-03-18] MEDS: GABAPENTIN 100 MG CAP PO SCH ×3 (05:18→23:40)
[2022-03-18] MEDS: diazePAM 2 MG TAB PO SCH ×2 (09:43→23:40)
[2022-03-18] MEDS: DICLOFENAC EPOLAMINE 1.3% PATCH TOP SCH ×2 (09:44→21:00)
[2022-03-18] MEDS: ACETAMINOPHEN 500 MG TAB PO SCH ×2 (09:44→21:00)
[2022-03-18] MEDS: MORPHINE 10MG/0.5ML ORAL CONCENTRATE SOLUTION U/D SL PRN (13:26)
[2022-03-18] MEDS: LORazepam 1 MG TAB PO PRN (23:40)
[2022-03-19] MEDS: LORazepam 1 MG TAB PO PRN ×3 (05:43→19:04)
[2022-03-19] MEDS: GABAPENTIN 100 MG CAP PO SCH ×3 (05:44→19:05)
[2022-03-19] MEDS: DICLOFENAC EPOLAMINE 1.3% PATCH TOP SCH ×2 (07:35→19:05)
[2022-03-19] MEDS: ACETAMINOPHEN 500 MG TAB PO SCH ×2 (09:00→19:04)
[2022-03-19] MEDS: diazePAM 2 MG TAB PO SCH ×2 (10:19→19:05)
[2022-03-20] MEDS: GABAPENTIN 100 MG CAP PO SCH ×3 (05:18→21:05)
[2022-03-20] MEDS: MORPHINE 10MG/0.5ML ORAL CONCENTRATE SOLUTION U/D SL PRN ×3 (05:21→23:39)
[2022-03-20] MEDS: ACETAMINOPHEN 500 MG TAB PO SCH ×2 (08:51→21:00)
[2022-03-20] MEDS: DICLOFENAC EPOLAMINE 1.3% PATCH TOP SCH ×2 (08:52→21:00)
[2022-03-20] MEDS: diazePAM 2 MG TAB PO SCH ×2 (08:59→21:00)
[2022-03-21] MEDS: GABAPENTIN 100 MG CAP PO SCH ×3 (06:00→19:29)
[2022-03-21] MEDS: MORPHINE 10MG/0.5ML ORAL CONCENTRATE SOLUTION U/D SL PRN ×4 (06:54→19:28)
[2022-03-21] MEDS: ACETAMINOPHEN 500 MG TAB PO SCH ×2 (08:49→19:29)
[2022-03-21] MEDS: DICLOFENAC EPOLAMINE 1.3% PATCH TOP SCH ×2 (08:56→19:29)
[2022-03-21] MEDS ORDERED: SCOPOLAMINE 1MG TRANSDERMAL PATCH TOP SCH (09:00)
[2022-03-21] MEDS: LORazepam 1 MG TAB PO PRN ×3 (09:04→19:29)
[2022-03-21] MEDS: diazePAM 2 MG TAB PO SCH ×2 (09:04→19:28)
[2022-03-22] MEDS: MORPHINE 10MG/0.5ML ORAL CONCENTRATE SOLUTION U/D SL PRN ×4 (00:42→13:27)
[2022-03-22] MEDS: LORazepam 1 MG TAB PO PRN (02:53)
[2022-03-22] MEDS: LORazepam 2 MG/ML VIAL IV PRN ×2 (03:15→11:42)
[2022-03-22] MEDS: GABAPENTIN 100 MG CAP PO SCH (05:30)
[2022-03-22] MEDS: ACETAMINOPHEN 500 MG TAB PO SCH (08:16)
[2022-03-22] MEDS: DICLOFENAC EPOLAMINE 1.3% PATCH TOP SCH (08:16)
[2022-03-22] MEDS: diazePAM 2 MG TAB PO SCH ×2 (08:16→22:36)
[2022-03-22] MEDS ORDERED: TRAN1DIS4 TOP (11:00)
[2022-03-22] MEDS ORDERED: ATIV1TAB7 PO (11:00)
[2022-03-22] MEDS ORDERED: MORP1SOL SL (11:00)
[2022-03-23] MEDS: MORPHINE 10MG/0.5ML ORAL CONCENTRATE SOLUTION U/D SL PRN ×3 (04:31→11:04)
[2022-03-23] MEDS: LORazepam 2 MG/ML VIAL IV PRN (07:50)
[2022-03-23] MEDS: diazePAM 2 MG TAB PO SCH (07:56)
== END 2022-03-23 17:13 | disposition expired | DRG 64 ==
LOC: M ED 17:06 → M ED INP 20:08 → M PCU 22:38 → M MSPAV 03-17 14:10
PROVIDERS: ADMIT Family Medicine; ATTEND Internal Medicine
DX: I63.9 Cerebral infarction, unspecified (principal); U07.1 COVID-19; G93.41 Metabolic encephalopathy; I48.20 Chronic atrial fibrillation, unspecified; G81.94 Hemiplegia, unspecified affecting left nondominant side; J98.11 Atelectasis; R47.1 Dysarthria and anarthria; E78.5 Hyperlipidemia, unspecified; R53.1 Weakness; I10 Essential (primary) hypertension; Z95.0 Presence of cardiac pacemaker; I69.391 Dysphagia following cerebral infarction; R41.0 Disorientation, unspecified; E86.0 Dehydration; M62.838 Other muscle spasm; R57.1 Hypovolemic shock; Z88.8 Allergy status to other drugs, medicaments and biological substances; Z51.5 Encounter for palliative care